=== PATIENT | female | born 1970 | race Caucasian/White ===

== ENCOUNTER 2016-12-01 15:45 | Observation (INO) ==
[2016-12-01 16:19] LABS: Basophils % 0.6 %; Eosinophils # 0.1 K/mcL (0.0-0.6); Eosinophils % 1.8 %; Hematocrit 47.9 % (35.3-44.9); Hemoglobin 16.3 g/dL (11.5-15.4); Immature Granulocytes % 0.1 % (0-4); Lymphocytes % 43.7 %; Mean Corpuscular Hemoglobin 30.3 pg (28.0-33.3); Mean Platelet Volume 10.4 fL (9.4-12.4); Monocytes # 0.6 K/mcL (0.0-1.3); Monocytes % 9.2 %; Neutrophils # 3.1 K/mcL (1.6-8.9); Platelet Count 326 K/mcL (140-400); Red Blood Count 5.38 M/mcL (3.82-4.97); Red Cell Distribution Width 12.7 % (11.5-14.5); Segmented Neutrophils % 44.6 %
[2016-12-01 16:28] LABS: Activated Partial Thrombo Time 28.3 Seconds (26.0-36.0)
[2016-12-01 16:33] LABS: Alanine Aminotransferase 30 Units/L (0-55); Albumin/Globulin Ratio 0.8 (1.1-2.2); Alkaline Phosphatase 97 Units/L (38-126); Aspartate Amino Transferase 20 Units/L (5-34); BUN/Creatinine Ratio 9 (6-26); Bilirubin,Total 0.3 mg/dL (0.2-1.2); Blood Urea Nitrogen 9 mg/dL (7-20); Calcium 10.1 mg/dL (8.6-10.8); Carbon Dioxide 27 mEq/L (19-29); Chloride 98 mEq/L (98-109); Globulin 4.9 g/dL (2.4-3.5); Glucose 121 mg/dL (70-99); Osmolality,Calculated 288 (280-300); Potassium 3.3 mEq/L (3.5-4.5); Sodium 139 mEq/L (136-145); Total Protein 8.9 g/dL (6.0-8.3); eGFR For African Americans > 60 (> 60); eGFR For Non-African Americans > 60 (> 60)
--- NOTE | 2016-12-01 16:37 | Emergency Department Note ---
Disposition Clinical Impression: Chest pain Disposition: Admitted As Inpatient Referrals: NO,PCP [Primary Care Provider] - Forms: ED Satisfaction Letter SOB HPI - General Chief Complaint: ED Shortness of Breath/Dyspnea Stated Complaint: SOB Time Seen by Provider: 12/01/16 16:04 Source: patient Limitations: no limitations Nursing Notes Reviewed: Yes Vital Signs Reviewed: Yes - History of Present Illness Patient presents when her shortness of breath that started yesterday. Patient states symptoms came on while at rest. Patient denies prior history of similar symptoms denies fevers or chills. Patient denies any numbness and tingling associated with this. Patient states she feels that she has trouble with ambulation associated. Patient also states she is a chest pain and a feeling that her heart is racing. - Related Data Home Medications Medication Instructions Recorded Confirmed ClonazePAM [Klonopin] 0.5 mg PO BID 07/27/16 12/01/16 Divalproex Sodium [Depakote] 250 mg PO HS 07/27/16 12/01/16 Hydrochlorothiazide 25 mg PO DAILY 07/27/16 12/01/16 [Hydrochlorothiazide] Loratadine [Claritin] 10 mg PO DAILY 07/27/16 12/01/16 Omeprazole [PriLOSEC] 20 mg PO DAILY 07/27/16 12/01/16 Quetiapine Fumarate [Seroquel] 100 mg PO HS 07/27/16 12/01/16 Ranitidine HCl [Zantac] 300 mg PO DAILY 08/15/16 12/01/16 Duloxetine [Cymbalta] 90 mg PO DAILY 10/02/16 12/01/16 Calcium Carbonate/Vitamin D3 1 tab PO DAILY 12/01/16 12/01/16 [Calcium 1,000 + D3 Caplet] Allergies Allergy/AdvReac Type Severity Reaction Status Date / Time metoclopramide [From Reglan] AdvReac Anxiety Verified 10/02/16 09:35 prochlorperazine AdvReac Anxiety Verified 10/02/16 09:35 [From Compazine] All systems ED: reviewed and negative except as stated. Past Medical History - Past Medical History Source: patient Medical history: Reports: asthma, coronary artery disease, GERD, hypertension, migraine, other Psychiatric history: Reports: anxiety PREDICTIVE MAINTENANCE SPECIALIST history: Reports: no PREDICTIVE MAINTENANCE SPECIALIST history - Social History Smoking Status: Former smoker Smokeless Tobacco Status: No Alcohol use: Reports: occasionally Drug use: Reports: none Physical Exam - General Limitations: no limitations General appearance: alert, in no apparent distress - Head Head exam: atraumatic, normocephalic, normal inspection - Eye Eye exam: Present: normal appearance, PERRL, EOMI - ENT ENT exam: normal exam, normal oropharynx, mucous membranes moist - Neck Neck exam: Present: normal inspection, full ROM, trachea midline - Chest Chest inspection: Present: normal inspection, symmetric chest wall rise - Respiratory Respiratory exam: Present: normal lung sounds bilaterally - Cardiovascular Cardiovascular exam: Present: normal rhythm, tachycardia, normal heart sounds - Abdominal Exam Abdominal exam: Present: soft, Non-Tender. Absent: tenderness, distention, guarding, rebound, rigidity - Extremities Exam Extremities exam: Present: normal inspection, full ROM. Absent: tenderness, pedal edema - Back Exam Back exam: Present: normal inspection, full ROM. Absent: tenderness - Neurological Exam Neurological exam: Present: alert, oriented X3 - Psychiatric Psychiatric exam: Present: normal affect, normal mood - Skin Skin exam: Present: warm, dry, intact, normal color Course Vital Signs Temperature 97.2 F L 12/01/16 15:51 Pulse Rate 116 12/01/16 15:51 Respiratory Rate 22 12/01/16 15:51 Blood Pressure 132/95 12/01/16 15:51 O2 Sat by Pulse Oximetry 96 12/01/16 15:51 Temperature 97.2 F L 12/01/16 15:51 Pulse Rate 93 12/01/16 19:01 Respiratory Rate 18 12/01/16 19:01 Blood Pressure 113/75 12/01/16 19:01 O2 Sat by Pulse Oximetry 96 12/01/16 19:01 Oxygen Delivery Oxygen Delivery Room Air Shortness of Breath/Dyspnea - Differential Diagnosis Likely: acute exacerbation of chronic obstructive airways disease, congestive heart failure, pneumonia, pulmonary embolism - Lab Data Result diagrams: 12/01/16 16:08 12/01/16 16:08 Lab Results 12/01/16 12/01/16 12/01/16 Range/Units 16:08 16:08 16:08 WBC 6.8 (4.3-11.1) K/mcL RBC 5.38 H (3.82-4.97) M/mcL Hgb 16.3 H (11.5-15.4) g/dL Hct 47.9 H (35.3-44.9) % MCV 89.0 (83.0-100.0) fL MCH 30.3 (28.0-33.3) pg MCHC 34.0 (31.6-35.5) g/dL RDW 12.7 (11.5-14.5) % Plt Count 326 (140-400) K/mcL MPV 10.4 (9.4-12.4) fL Immature Gran % 0.1 (0-4) % Seg Neutrophils % 44.6 % Lymphocytes % 43.7 % Monocytes % 9.2 % Eosinophils % 1.8 % Basophils % 0.6 % Neutrophils # 3.1 (1.6-8.9) K/mcL Lymphocytes # 3.0 (0.6-4.6) K/mcL Monocytes # 0.6 (0.0-1.3) K/mcL Eosinophils # 0.1 (0.0-0.6) K/mcL Basophils # 0.0 (0.0-0.2) K/mcL APTT 28.3 (26.0-36.0) Seconds D-Dimer 386 (0-500) ng/mLFEU Sodium 139 (136-145) mEq/L Potassium 3.3 L (3.5-4.5) mEq/L Chloride 98 (98-109) mEq/L Carbon Dioxide 27 (19-29) mEq/L BUN 9 (7-20) mg/dL Creatinine 0.97 (0.57-1.11) mg/dL Est GFR ( Amer) > 60 (> 60) Est GFR (Non-Af Amer) > 60 (> 60) BUN/Creatinine Ratio 9 (6-26) Glucose 121 H (70-99) mg/dL Calculated Osmolality 288 (280-300) Calcium 10.1 (8.6-10.8) mg/dL Total Bilirubin 0.3 (0.2-1.2) mg/dL AST 20 (5-34) Units/L ALT 30 (0-55) Units/L Alkaline Phosphatase 97 (38-126) Units/L Troponin I (0-0.03) ng/mL B-Natriuretic Peptide (0-100) pg/mL Serum Total Protein 8.9 H (6.0-8.3) g/dL Albumin 4.0 (3.5-5.0) g/dL Globulin 4.9 H (2.4-3.5) g/dL Albumin/Globulin Ratio 0.8 L (1.1-2.2) 12/01/16 12/01/16 Range/Units 16:08 16:08 WBC (4.3-11.1) K/mcL RBC (3.82-4.97) M/mcL Hgb (11.5-15.4) g/dL Hct (35.3-44.9) % MCV (83.0-100.0) fL MCH (28.0-33.3) pg MCHC (31.6-35.5) g/dL RDW (11.5-14.5) % Plt Count (140-400) K/mcL MPV (9.4-12.4) fL Immature Gran % (0-4) % Seg Neutrophils % % Lymphocytes % % Monocytes % % Eosinophils % % Basophils % % Neutrophils # (1.6-8.9) K/mcL Lymphocytes # (0.6-4.6) K/mcL Monocytes # (0.0-1.3) K/mcL Eosinophils # (0.0-0.6) K/mcL Basophils # (0.0-0.2) K/mcL APTT (26.0-36.0) Seconds D-Dimer (0-500) ng/mLFEU Sodium (136-145) mEq/L Potassium (3.5-4.5) mEq/L Chloride (98-109) mEq/L Carbon Dioxide (19-29) mEq/L BUN (7-20) mg/dL Creatinine (0.57-1.11) mg/dL Est GFR ( Amer) (> 60) Est GFR (Non-Af Amer) (> 60) BUN/Creatinine Ratio (6-26) Glucose (70-99) mg/dL Calculated Osmolality (280-300) Calcium (8.6-10.8) mg/dL Total Bilirubin (0.2-1.2) mg/dL AST (5-34) Units/L ALT (0-55) Units/L Alkaline Phosphatase (38-126) Units/L Troponin I 0.00 (0-0.03) ng/mL B-Natriuretic Peptide < 10 (0-100) pg/mL Serum Total Protein (6.0-8.3) g/dL Albumin (3.5-5.0) g/dL Globulin (2.4-3.5) g/dL Albumin/Globulin Ratio (1.1-2.2) - Radiology Data Radiology results reviewed: Yes I reviewed the patient's radiology results. Chest X-Ray 12/01/16 16:08 IMPRESSION: No evidence of acute cardiopulmonary disease. D/ / Yared Rendon MD / Yared Rendon MD Interpreting Provider: Yared Rendon MD - EKG Data EKG attestation: Yes I reviewed and interpreted this EKG. EKG shows normal: Reports: sinus rhythm Rate: Reports: tachycardia Rhythm: Reports: NSR
[2016-12-01] MEDS ORDERED: Nitroglycerin 0.4 MG TAB.SUBL SL PRN (17:02)
[2016-12-01] MEDS ORDERED: *HR* Morphine 2 MG/ML SYRINGE IV ONE (17:34)
[2016-12-01] MEDS ORDERED: Ondansetron 4 MG/2 ML VIAL IVP ONE (17:43)
[2016-12-01] MEDS ORDERED: 0.9 % Sodium Chloride 1,000 ML IV ONE (18:17)
[2016-12-01] MEDS ORDERED: Aspirin 81 MG TAB.CHEW PO STA (19:24)
[2016-12-01] MEDS ORDERED: Acetaminophen 325 MG TABLET PO PRN (21:30)
[2016-12-01] MEDS ORDERED: Ondansetron 4 MG/2 ML VIAL IVP PRN (21:30)
[2016-12-01] MEDS ORDERED: Heparin 25,000 UNIT/500 ML D5W 25,000 UNIT/500 ML MLS IVC SCH (21:30)
[2016-12-01] MEDS ORDERED: Naloxone 0.4 MG/ML INJ IVP PRN (21:30)
[2016-12-01] MEDS ORDERED: 0.9 % Sodium Chloride w KCl 20 MEQ/1,000 ML MLS IVC SCH (21:30)
[2016-12-01] MEDS ORDERED: *HR* Heparin 5,000 UNIT/ML VIAL IVP PRN ×2 (21:30)
[2016-12-01] MEDS ORDERED: *HR* Heparin 5,000 UNIT/ML VIAL IVP ONE (21:30)
--- NOTE | 2016-12-01 21:42 | Internal Med History&Physical ---
Date of Encounter: 12/01/16 Time of Encounter: 20:50 Assessment and Plan (1) Chest pain Current visit: Yes Status: Acute 1. History and EKG concerning for coronary ischemia. 2. Will start Heparin gtt per ACS protocol, cycle troponins and EKG, and order ECHO for the morning. 3. At a minimum, she needs cardiac stress test, but I favor [facility]. 4. Consult cardiology given above concerns. I will defer ischemic work-up to cardiology. Qualifiers: Chest pain type: chest pain due to myocardial ischemia Ischemic chest pain type: stable angina pectoris Qualified Code(s): I20.8 - Other forms of angina pectoris (2) GERD (gastroesophageal reflux disease) Current visit: Yes Status: Chronic 1. Continue home PPI and H2 blockers. 2. Exam and history do not suggest GI source of chest pain. Qualifiers: Esophagitis presence: without esophagitis Qualified Code(s): K21.9 - Gastro -esophageal reflux disease without esophagitis (3) DVT prophylaxis Current visit: Yes Status: Acute 1. Heparin gtt as noted above. Internal Medicine - H&P: HPI Chief complaint: chest pain Admitted From: Emergency Dept Plans for Post Hospital Care: Home History of present illness: Ms. Quiles is a 46 year old female who presents the ER with a 24-hour history of substernal chest pain, pressure, associated diaphoresis, shortness of breath , and pain radiation to her left arm. Symptoms started yesterday when she was at rest and sitting on the couch. She felt a little anxious, so she took her nighttime medication last night and went to bed. She then woke up this morning with the same kind of pain and it made her more nervous and anxious. Her mother and father convinced her to come to the ER for evaluation. ER work-up was negative, but she was admitted to hospitalist service for further workup and care. Upon my assessment of the patient, she has minimal residual chest pain now. She states that she felt better with oxygen administration and a one-time dose of morphine. She had minimal relief with nitroglycerin. She states that there is a strong family history of premature coronary artery disease and that her father had heart disease in his 40s. She does not smoke, and she is not diabetic. However, the family history is rather concerning. Unfortunately, she is rather sedentary lately due to recent ankle surgery. She denies any history of blood clots personally or in her family. She had a prior stress test about 6 or 7 years ago which was reportedly negative. I reviewed her EKG and note that she has some subtle ischemic changes in the precordial leads, primarily V3 to V6. Past Med Surg Social Fam HX - Past Medical History Attestation: Yes The following information was validated with the patient. Source: patient, old records reviewed Medical history: asthma, GERD, hypertension, migraine Psychiatric history: anxiety - Past Surgical History Surgical History: CLARE/BSO - Social History Smoking Status: Former smoker Smokeless Tobacco Status: No Alcohol use: occasionally Drug use: none Current living situation: Home, With Family Activity Level: Independent ambulation Recent Out of Country Travel Within the Last 8 Weeks: No - Family History Mother Living Status: Still Living (alive and well) Father Living Status: Still Living Hx Family Cardiac Disorders: Yes (premature CAD) Internal Medicine - H&P: Meds ClonazePAM [Klonopin] 0.5 mg PO BID 07/27/16 [History] Divalproex Sodium [Depakote] 250 mg PO HS 07/27/16 [History] Hydrochlorothiazide [Hydrochlorothiazide] 25 mg PO DAILY 07/27/16 [History] Loratadine [Claritin] 10 mg PO DAILY 07/27/16 [History] Omeprazole [PriLOSEC] 20 mg PO DAILY 07/27/16 [History] Quetiapine Fumarate [Seroquel] 100 mg PO HS 07/27/16 [History] Ranitidine HCl [Zantac] 300 mg PO DAILY 08/15/16 [History] Duloxetine [Cymbalta] 90 mg PO DAILY 10/02/16 [History] Calcium Carbonate/Vitamin D3 [Calcium 1,000 + D3 Caplet] 1 tab PO DAILY [History] Allergies metoclopramide [From Reglan] Adverse Reaction (Verified 10/02/16 09:35) Anxiety prochlorperazine [From Compazine] Adverse Reaction (Verified 10/02/16 09:35) Anxiety - Constitutional Constitutional: no chills, no fever(s) - EENT Eyes: no blurry vision, no change in vision Ears: no ear pain, no tinnitus Nose, mouth and throat: no nasal congestion, no sinus pain, no sinus pressure, no sore throat - Cardiovascular Cardiovascular ROS IM: chest pain, diaphoresis, dyspnea, palpitations, no lightheadedness, no syncope - Respiratory Respiratory: dyspnea, no cough, no hemoptysis, no chest congestion, no excessive phlegm production - Gastrointestinal Gastrointestinal: no abdominal pain, no diarrhea, no hematemesis, no hematochezia, no melena, no vomiting - Genitourinary Genitourinary: no dysuria, no hematuria - Musculoskeletal Musculoskeletal ROS IM: no back pain, no muscle cramps, no muscle weakness - Integumentary Integumentary IM: no rash, no jaundice - Neurological Neurological ROS: no focal weakness, no frequent falls, no headache(s) - Psychiatric Psychiatric: no anxiety, no depression - Endocrine Endocrine IM: no cold intolerance, no heat intolerance, no polydipsia, no polyuria - Hematologic/Lymphatic Hematologic/Lymphatic: no easy bruising, no lymphadenopathy - Allergic/Immunologic Allergic/Immunologic: no wheezing, no GI upset with certain foods - Constitutional Vitals: Temp Pulse Resp BP Pulse Ox 97.8 F 89 18 121/80 96 12/01/16 20:53 12/01/16 20:53 12/01/16 20:53 12/01/16 20:53 12/01/16 20:53 General appearance: Present: cooperative, A&O X 3, pleasant, no acute distress, answers questions appropriately - Head Head exam: Present: atraumatic, normal inspection - Expanded Head Exam Head exam expanded: Absent: abrasion, contusion, general tenderness - Eye Eye exam: Present: EOMI, normal appearance, PERRL. Absent: scleral icterus Pupils: Present: normal accommodation - ENT ENT exam: Present: mucous membranes moist, normal exam, normal oropharynx - Neck Neck exam general surgery: Present: full ROM, normal inspection, supple. Absent : nuchal rigidity - Expanded Neck Exam Neck exam: Absent: carotid bruit - Respiratory Respiratory exam: Present: CTAB. Absent: chest wall tenderness, rales, respiratory distress, rhonchi, wheezes - Cardiovascular Cardiovascular exam: Present: RRR, +S1, +S2. Absent: diastolic murmur, systolic murmur - GI/Abdominal GI/Abdominal exam: Present: normal bowel sounds, soft. Absent: hepatomegaly, mass, splenomegaly, tenderness - Extremities Exam Extremities exam: Present: full ROM, joint swelling (right ankle from recent surgery), warm. Absent: calf tenderness, pedal edema - Back Exam Back exam: Present: normal inspection. Absent: CVA tenderness (L), CVA tenderness (R) - Neurological Exam Neurological exam: Present: alert, CN II-XII intact, oriented X3, no focal deficits - Psychiatric Psychiatric exam: Present: normal affect, normal mood - Skin Skin exam: Present: dry, warm. Absent: rash Internal Med - H&P Results - Labs CBC & Chem 7: 12/01/16 16:08 12/01/16 16:08 - EKG Data -: EKG Interpreted by Myself EKG shows normal: sinus rhythm - EKG Data Prior EKG available for review: yes When compared to previous EKG: there are significant changes EKG comments: 12/01/16 21:47 Sinus tachycardia with subtle ST-T depression in leads V3-V6. - Diagnostic Studies Chest x-ray Status: image reviewed by me (negative) - VTE Reasons for not Prescribing Prophylaxis: Not indicated-Anticoagulated or INR therapeutic
[2016-12-01] MEDS ORDERED: Divalproex (24 HR) 250 MG TABLET PO SCH (21:45)
[2016-12-01] MEDS: *HR* Morphine 2 MG/ML SYRINGE IVP PRN (22:55)
[2016-12-01 22:58] LABS: Hematocrit 42.6 % (35.3-44.9); Mean Corpuscular HGB Conc 33.1 g/dL (31.6-35.5); Mean Corpuscular Volume 90.6 fL (83.0-100.0); Mean Platelet Volume 10.3 fL (9.4-12.4); Platelet Count 291 K/mcL (140-400); Red Cell Distribution Width 12.8 % (11.5-14.5)
[2016-12-01 23:01] LABS: Hemoglobin 14.1 g/dL (11.5-15.4)
[2016-12-01 23:04] LABS: INR 1.2; Prothrombin Time 13.1 Seconds (9.4-12.1)
[2016-12-01 23:06] LABS: Activated Partial Thrombo Time 28.2 Seconds (26.0-36.0)
[2016-12-01] MEDS: clonazePAM 0.5 MG TABLET PO PRN (23:35)
[2016-12-02 06:26] LABS: Basophils % 0.5 %; Eosinophils # 0.1 K/mcL (0.0-0.6); Eosinophils % 1.5 %; Hematocrit 39.5 % (35.3-44.9); Lymphocytes # 3.9 K/mcL (0.6-4.6); Lymphocytes % 59.9 %; Mean Corpuscular HGB Conc 32.9 g/dL (31.6-35.5); Mean Corpuscular Hemoglobin 30.1 pg (28.0-33.3); Mean Corpuscular Volume 91.4 fL (83.0-100.0); Monocytes # 0.6 K/mcL (0.0-1.3); Monocytes % 9.2 %; Neutrophils # 1.9 K/mcL (1.6-8.9); Platelet Count 263 K/mcL (140-400); Red Blood Count 4.32 M/mcL (3.82-4.97); Red Cell Distribution Width 12.7 % (11.5-14.5); Segmented Neutrophils % 28.9 %
[2016-12-02 06:42] LABS: Alanine Aminotransferase 21 Units/L (0-55); Albumin/Globulin Ratio 0.9 (1.1-2.2); Alkaline Phosphatase 69 Units/L (38-126); Aspartate Amino Transferase 15 Units/L (5-34); BUN/Creatinine Ratio 15 (6-26); Bilirubin,Total 0.3 mg/dL (0.2-1.2); Blood Urea Nitrogen 13 mg/dL (7-20); Calcium 8.8 mg/dL (8.6-10.8); Carbon Dioxide 26 mEq/L (19-29); Chloride 103 mEq/L (98-109); Chol/HDL Ratio 6.2 (0-4.9); Cholesterol 235 mg/dL (< 200); Globulin 3.3 g/dL (2.4-3.5); Glucose 108 mg/dL (70-99); HDL Cholesterol 38 mg/dL (40-59); LDL Cholesterol,Calculated 156 mg/dL (0-99); Magnesium 1.7 mg/dL (1.6-2.6); Osmolality,Calculated 289 (280-300); Potassium 3.7 mEq/L (3.5-4.5); Sodium 139 mEq/L (136-145); Triglycerides 207 mg/dL (< 150); eGFR For African Americans > 60 (> 60); eGFR For Non-African Americans > 60 (> 60)
[2016-12-02 06:44] LABS: Total Protein 6.3 g/dL (6.0-8.3)
[2016-12-02 07:13] VITALS: BP 101/70
[2016-12-02] MEDS ORDERED: Aspirin 81 MG TAB.CHEW PO SCH (09:00)
[2016-12-02] MEDS ORDERED: Famotidine 20 MG TABLET PO SCH (09:00)
[2016-12-02] MEDS ORDERED: Loratadine 10 MG TABLET PO SCH (09:00)
[2016-12-02] MEDS ORDERED: Regadenoson 0.4 MG/5 ML SYRINGE IVP ONE (09:18)
--- NOTE | 2016-12-02 09:54 | Cardiology Consult Note ---
Date of Encounter: 12/02/16 Time of Encounter: 09:00 Assessment and Plan Discussion w patient/family: The assessment and plan as outlined above was discussed with the patient and/or family members who expressed understanding and agreement. All questions were answered. Thank you for involving us in the care of your patient. Please call with any questions. Chest pain; has some risk factors, exam is ok, ekg no changes , enzymes neg Plan will arrange for gxt today d/c Heparin for now based on results of GXT will consider further recs Thanks History of Present Illness Consult reason: Chest pain Chief complaint: Chest pain is vague, ? pressure like, non radiating, not worse with exertio History of present illness: Ms. Quiles is a 46 year old female with no past cardiac history who comes in now with CP central / pressure like, not worse with exertion. ? Relieved by rest , at present she is pain free. No fever , no chills. Past Med Surg Social Fam HX - Past Medical History Medical history: asthma, GERD, hypertension, migraine Psychiatric history: anxiety - Past Surgical History Surgical History: CLARE/BSO - Social History Smoking Status: Former smoker Smokeless Tobacco Status: No Alcohol use: occasionally Drug use: none - Family History Mother Living Status: Still Living Father Living Status: Still Living Hx Family Cardiac Disorders: Yes (premature CAD, pacemaker/defib, NC, CHF) Medications and Allergies ClonazePAM [Klonopin] 0.5 mg PO BID 07/27/16 [History] Divalproex Sodium [Depakote] 250 mg PO HS 07/27/16 [History] Hydrochlorothiazide [Hydrochlorothiazide] 25 mg PO DAILY 07/27/16 [History] Loratadine [Claritin] 10 mg PO DAILY 07/27/16 [History] Omeprazole [PriLOSEC] 20 mg PO DAILY 07/27/16 [History] Quetiapine Fumarate [Seroquel] 100 mg PO HS 07/27/16 [History] Ranitidine HCl [Zantac] 300 mg PO DAILY 08/15/16 [History] Duloxetine [Cymbalta] 90 mg PO DAILY 10/02/16 [History] Calcium Carbonate/Vitamin D3 [Calcium 1,000 + D3 Caplet] 1 tab PO DAILY [History] Allergies metoclopramide [From Reglan] Adverse Reaction (Verified 10/02/16 09:35) Anxiety prochlorperazine [From Compazine] Adverse Reaction (Verified 10/02/16 09:35) Anxiety All Systems Review: A 10-system review of systems was performed and is negative for pertinent findings except as documented above in the HPI. Physical Examination Vital Signs, Last 4 Hours Temp Pulse Resp BP Pulse Ox 12/02/16 07:09 97.5 F L 79 14 101/70 99 General: Conversant HEENT: Atraumatic Neck: No JVD Cardiac: Reg Rate and Rhythm Lungs: Normal Breath Sounds Neuro: Alert and responsive Abdomen: Soft Skin: No rashes noted on visualized skin Musculoskeletal: No Chest Wall Tenderness Extremities: No Clubbing Results 12/02/16 06:19 12/02/16 06:19 Lab Results 12/01/16 12/01/16 12/01/16 22:51 22:51 22:51 WBC 6.7 Hgb 14.1 D Hct 42.6 Plt Count 291 INR 1.2 APTT 28.2 Sodium Potassium Chloride Carbon Dioxide BUN Creatinine Glucose Calcium Magnesium Total Bilirubin AST ALT Alkaline Phosphatase Troponin I 0.00 12/02/16 12/02/16 12/02/16 06:19 06:19 06:19 WBC 6.5 Hgb 13.0 Hct 39.5 Plt Count 263 INR APTT Sodium 139 Potassium 3.7 Chloride 103 Carbon Dioxide 26 BUN 13 Creatinine 0.84 Glucose 108 H Calcium 8.8 Magnesium 1.7 Total Bilirubin 0.3 AST 15 ALT 21 Alkaline Phosphatase 69 Troponin I 0.00 12/02/16 06:19 WBC Hgb Hct Plt Count INR APTT 55.7 H D Sodium Potassium Chloride Carbon Dioxide BUN Creatinine Glucose Calcium Magnesium Total Bilirubin AST ALT Alkaline Phosphatase Troponin I - EKG Interpretation EKG results cardiology: no diagnostic ischemia (non specific st t changes) Consult Discharge Plan - Plan Referrals: NO,PCP [Primary Care Provider] -
--- NOTE | 2016-12-02 11:09 | ECHO - Doppler Report ---
Echocardiogram Name: Amada Quiles Date of Study: 12/02/2016 Date: 1970 Ht: 64.0 in Medical Record#: [id number] Age: 46 Wt: 180.0 lb Gender: Female BSA: 1.87 Order #: [id number] Location: [facility] Room #: [id number] Reading Physician: Sawyer Hook DO, FELIX, SANTOS AZAR Consulting Utility Forester: Rhianna Dye RDCS Ordering Physician: Johnie Rios MD Primary Physician: None Indications: Chest pain, Ischemic EKG Changes Impressions: LVEF 60%. Normal LV chamber size, wall thickness and function. Normal left ventricular diastolic function. Normal right ventricular structure and function. No evidence of pulmonary hypertension. No significant valvular dysfunction. Left Ventricular Wall Motion: Rest Echo Findings All wall segments showed normal motion. Findings: Study Quality * Technically adequate exam. ECG Findings * Normal sinus rhythm. Left Ventricle * LVEF 60%. * Normal LV chamber size, wall thickness and function. * Normal left ventricular diastolic function. Right Ventricle * Normal right ventricular structure and function. Left Atrium * Mildly dilated left atrium. Right Atrium * Normal right atrial size. Interatrial Septum * Interatrial septum not well evaluated. Aortic Valve * Trileaflet aortic valve with normal function. * No aortic regurgitation. * No aortic stenosis. Mitral Valve * Normal mitral valve structure and function. * No mitral regurgitation. * No mitral stenosis. Tricuspid Valve * Normal tricuspid valve structure and function. * Trace tricuspid regurgitation. * No evidence of pulmonary hypertension. Pulmonic Valve * Pulmonic valve not well visualized. Aorta * Normally sized aortic root. Pericardium * The pericardium appears normal. IVC * Normal IVC dimensions and inspiratory collapse. Pulmonary Artery * Pulmonary artery not well visualized. History Hypertension Family History of CAD Measurements: BP: 106/ 69 2D Normal Values RVIDd: 2.74 cm <2.7 cm IVSd: .70 cm 0.6 - 1.0 cm LVIDd: 4.90 cm 3.7 - 5.6 cm LVPWd: .84 cm 0.6 - 1.1 cm LVIDs: 2.84 cm 1.5 - 3.6 cm AO: 2.30 cm < 4.0 cm LA: 2.80 cm 2.0 - 4.0cm %FS: 42.00 cm >25 % LA volume: 36 Mitral Valve Peak E:1.02 m/sec Peak A:.73 m/sec E/A Ratio:1.4 Peak E' Lat Flash:7.83 cm/s Peak E' Med Flash:10.7 cm/s E/E' Lat Ratio:13 E/E' Med Ratio:9.5 Tricuspid Valve TV Regurg Peak Grad: 14.00mmHg TV Regurg Peak Flash: 1.87m/sec Updated by Sawyer Hook DO, FELIX, SANTOS AZAR on 12/02/2016 11:04:50 AM electronically signed on 12/02/2016 11:05:20 AM with status of Final Wall Motion Canas: 1=Normal, 2=Hypokinesis, 3=Akinesis, 4=Dyskinesis, 5=Aneurysmal, 6=Hyperkinetic, X=Not Visualized (Blank)=Missing
--- NOTE | 2016-12-02 12:37 | Nuclear Medicine Stress Report ---
Regadenoson Nuclear Stress Name: Amada Quiles Date of Study: 12/02/2016 Date: 1970 Ht: 64.0 in Medical Record#: [id number] Age: 46 Wt: 180.0 lb Gender: Female Order #: [id number] Location: [facility] Room: [facility] Supervising Provider: Ferny Abraham CNP Reading Physician: Sawyer Hook DO, FACC, FASE, SANTOS Ordering Physician: Mary Fry MD Primary Care Physician: None Stress Technologist: Tigist Carey, HEAD ATHLETIC TRAINER, CCT, CPFT Rotoprinter: Nickolas Canas Indications: Chest Pain, Shortness of breath Impression: Pharmacologic stress ECG is negative for ischemia at level of heart rate achieved. Gated EF > 70%. Perfusion imaging was negative for ischemia or infarct. History: Hypertension Hypercholesteremia Stress Test Summary: Stress Test Type: Pharmacologic Regadenoson 0.4mg/5ml given IV Baseline Information: Initial Heart Rate: 80 Blood Pressure: 104/68 Stress Information: Test Terminated Due to (primary): As per protocol Maximum Blood Pressure: 112/62 Maximum Heart Rate: 105 Percent Maximum Heart Rate Achieved: 60 Double Product: [id number] METS Reached: 1 Symptoms: Shortness of breath Nuclear Summary: SPECT myocardial perfusion imaging using Tc99m Sestamibi given intravenously was performed at rest and following cardiac stress testing. The resting images were obtained following initial dose of 11.2 mCi. Following stress an additional dose of 35.3 mCi was given at peak exercise or 30 seconds post regadenoson infusion. Medication Given: Time Medication Dose Units Route Findings: Stress Note * Resting ECG demonstrated normal sinus rhythm. * No baseline arrhythmias were noted. * Pharmacologic stress ECG is negative for ischemia at level of heart rate achieved. * No arrhythmias were noted during stress. * Patient had no chest pain during stress. * Normal hemodynamic responses to pharmacologic stress. Study Quality * Study quality is average. Gated EF > 70% * Gated EF > 70%. Left Ventricle * The left ventricle is not dilated. LVEDV = 74 mL. NORMALS * All other wall motion normal. * Normal Segmental Perfusion in rest. * Normal segmental perfusion in stress. TID * No evidence of transient ischemic dilatation. TID ratio = 1.11. Lung Uptake * There is no evidence of increase lung uptake. Updated by Sawyer Hook DO, FELIX, DOE, SANTOS on 12/02/2016 12:30:59 PM electronically signed on 12/02/2016 12:32:02 PM with status of Final
--- NOTE | 2016-12-02 12:51 | Event Note ---
Date of Encounter: 12/02/16 Time of Encounter: 12:50 - Cardiology Event Note Stress test resulted. Gated EF >70%. Perfusion imaging negative for ischemia or infarct. Cardiology is signing off. Reconsult PRN .
--- NOTE | 2016-12-02 13:10 | Discharge Summary ---
Date of Encounter: 12/02/16 Time of Encounter: 13:06 - Discharge Diagnosis (1) Chest pain Priority: Primary Status: Acute Qualifiers: Chest pain type: precordial pain Qualified Code(s): R07.2 - Precordial pain (2) Hyperlipidemia Priority: Secondary Status: Acute Qualifiers: Hyperlipidemia type: mixed hyperlipidemia Qualified Code(s): E78.2 - Mixed hyperlipidemia (3) GERD (gastroesophageal reflux disease) Priority: Secondary Status: Chronic Qualifiers: Esophagitis presence: without esophagitis Qualified Code(s): K21.9 - Gastro -esophageal reflux disease without esophagitis - Discharge Medications Prescriptions: Aspirin 81 mg PO DAILY #30 tab.chew Pravastatin Sodium [Pravachol] 20 mg PO DAILY #30 tablet Home Medications: ClonazePAM [Klonopin] 0.5 mg PO BID 07/27/16 [History] Divalproex Sodium [Depakote] 250 mg PO HS 07/27/16 [History] Hydrochlorothiazide 25 mg PO DAILY 07/27/16 [History] Loratadine [Claritin] 10 mg PO DAILY 07/27/16 [History] Omeprazole [PriLOSEC] 20 mg PO DAILY 07/27/16 [History] Quetiapine Fumarate [Seroquel] 100 mg PO HS 07/27/16 [History] Ranitidine HCl [Zantac] 300 mg PO DAILY 08/15/16 [History] Duloxetine [Cymbalta] 90 mg PO DAILY 10/02/16 [History] Calcium Carbonate/Vitamin D3 [Calcium 1,000 + D3 Caplet] 1 tab PO DAILY [History] Aspirin 81 mg PO DAILY #30 tab.chew 12/02/16 [Rx] Pravastatin Sodium [Pravachol] 20 mg PO DAILY #30 tablet 12/02/16 [Rx] Allergies/Adverse Reactions: Allergies metoclopramide [From Reglan] Adverse Reaction (Verified 10/02/16 09:35) Anxiety prochlorperazine [From Compazine] Adverse Reaction (Verified 10/02/16 09:35) Anxiety Procedures/tests Complete & Pending: Procedures Performed prior 72 hours Category Date Time Status NM lucie perf SPECT multi [NM] Routine Exams 12/02/16 09:13 Taken ECG 12 lead ECG [ECG] AM 0600 Y 12/02/16 06:00 Ordered EV echocardiogram Routine Y 12/02/16 09:00 Completed SP pharm nuclear stress Routine Y 12/02/16 09:13 Completed Date of admission: 12/01/16 19:32 Primary care physician: PCP VALE Consults: 12/01/16 21:34 Consult to Physician [CONS] Routine Consulting Provider: Ryan Miller Reason for Consult: chest pain/ACS; suspect needs [facility] Call Completed: No 12/02/16 08:21 Consult to Cardiology [CONS] Routine Comment: Consulting Provider: Cardiology Katja Reason for Consult: chest pain Call Completed: No Discharging clinician: Mary Fry Anticipated date of discharge: 12/02/16 - Patient Status Disposition: Home, Self-Care Condition: Good Functional capacity at discharge: independent ambulation Overall status at discharge: patient is progressing back to baseline - Discharge Instructions Instructions: Chest Pain (DC) Follow Up With: NO,PCP [Primary Care Provider] - (in 1-2 weeks) - Diet and Activity Activity: increase activity as tolerated Diet: low fat, low cholesterol Hospital course: Ms. Quiles is a 46 year old female status essential hypertension, gastroesophageal reflux disease who was observed in the hospital after she presented with chest pressure concerning for ACS. She was evaluated with EKG which showed subtle ST-T wave depression in leads V3 to V6. Cardiology was consulted. They recommended a stress test for the patient. She underwent a nuclear medicine stress test which was negative for any ischemia. As such the patient is stable to be discharged home. Chest pain could be due to gastroesophageal reflux disease. Patient is already on omeprazole and ranitidine. If this pain persists, she will need evaluation with EGD as outpatient. Patient also has hyperlipidemia and has been started on pravastatin for this. - Time Spent with Patient Total time spent providing and/or coordinating discharge services: Less than 30 minutes (25 min) - Constitutional Vitals: Temp Pulse Resp BP Pulse Ox 97.5 F L 79 14 101/70 99 12/02/16 07:09 12/02/16 07:09 12/02/16 07:09 12/02/16 07:09 12/02/16 09:00 General appearance: Present: cooperative, A&O X 3, pleasant, no acute distress, answers questions appropriately - Respiratory Respiratory exam: Present: CTAB. Absent: accessory muscle use, rales, rhonchi, wheezes - Cardiovascular Cardiovascular exam: Present: RRR, +S1, +S2. Absent: diastolic murmur, gallop, rubs, systolic murmur - Extremities Exam Extremities exam: Present: warm, radial pulses palpable and symetrical. Absent : calf tenderness, cyanotic, pedal edema - VTE Reasons for not Prescribing Prophylaxis: Not indicated-Anticoagulated or INR therapeutic - Attending Attestation This document has been at least partially created by [employer] recognition technology by Dr. Fry. Errors in grammar, wording or other phrases may exist. If errors are found after the documentation is signed, they will be addressed individually in the addendum section of this document when appropriate.
[2016-12-02] MEDS: clonazePAM 0.5 MG TABLET PO PRN (13:20)
[2016-12-02] MEDS: *HR* Morphine 2 MG/ML SYRINGE IVP PRN (13:22)
--- NOTE | 2016-12-02 20:29 | Electrocardiograph Report ---
[place] [id number] Test Date: 2016-12-01 Pat Name: Amada Quiles Department: [id number] Room: 3B Gender: F [employer]: : 1970 Requested By: Michele Toussaint Order Number: [id number] Reading MD: Sawyer Hook DO Measurements Intervals [place] Rate: 100 P: -3 AR: 104 QRS: 19 QRSD: 84 T: 22 QT: 351 QTc: 408 Interpretive Statements SINUS TACHYCARDIA Electronically Signed On 12-02-2016 20:28:12 EST by Sawyer Hook DO
== END 2016-12-02 14:21 | disposition home or self-care (01) ==
LOC: 3BNU 15:45 → EMEROO 15:45 → 3BNU 20:45
PROVIDERS: ADMIT Internal Medicine; ATTEND Internal Medicine

== ENCOUNTER 2017-05-20 20:58 | Observation (INO) ==
--- NOTE | 2017-05-20 21:05 | Emergency Department Note ---
Disposition Clinical Impression: ACS (acute coronary syndrome) Disposition: Admitted As Inpatient Condition: Good Referrals: NO,PCP [Primary Care Provider] - Forms: ED Satisfaction Letter Time of Disposition: 22:24 Chest Pain HPI - General Chief Complaint: ED Chest Pain Stated Complaint: chest pain Time Seen by Provider: 05/20/17 21:00 Source: patient, EMS Mode of arrival: EMS Vital Signs Reviewed: Yes Nursing Notes Reviewed: Yes - History of Present Illness HPI Narrative: History of present illness: 46-year-old female by EMS for chest pain. Check an episode this morning at about a 11:45 where she took was some lingual much of crystalloid and the pain went away. She states she has never used nitroglycerin before. Then about 5 tonight same thing happen she took 2 nitroglycerin the pain did not go away so she called EMS. Patient says that she had pain initially in the center of her chest now going into her left arm and neck. Shortness of breath nausea and tightness. Patient said she has had admissions before but was supposed to get a cardiac catheter but never did work said later that they did not need to do it. Patient does have multiple risk factors and her HEART score, is approximately 5. Patient got her aspirin at home and per EMS. Patient will be undergoing ACS workup here with admission anticipated. Disposition pending - Related Data Home Medications Medication Instructions Recorded Confirmed Divalproex Sodium [Depakote] 250 mg PO HS 07/27/16 05/20/17 Loratadine [Claritin] 10 mg PO DAILY 07/27/16 05/20/17 Quetiapine Fumarate [Seroquel] 100 mg PO HS 07/27/16 05/20/17 clonazePAM [Klonopin] 0.5 mg PO BID 07/27/16 05/20/17 hydroCHLOROthiazide 25 mg PO DAILY 07/27/16 05/20/17 [Hydrochlorothiazide] Ranitidine HCl [Zantac] 300 mg PO DAILY 08/15/16 05/20/17 DULoxetine [Cymbalta] 90 mg PO DAILY 10/02/16 05/20/17 Ergocalciferol (VITAMIN D2) 50,000 unit PO QMONTH 05/20/17 05/20/17 [Vitamin D2] Esomeprazole Magnesium [Nexium] 40 mg PO DAILY 07/24/17 07/24/17 Previous Rx's Medication Instructions Recorded Aspirin 81 mg PO DAILY #30 tab.chew 12/02/16 Pravastatin Sodium [Pravachol] 20 mg PO DAILY #30 tablet 12/02/16 Nitroglycerin [Nitrostat] 0.4 mg SL Q5-6MIN PRN #20 tab.subl 03/18/17 Allergies Allergy/AdvReac Type Severity Reaction Status Date / Time metoclopramide [From Reglan] AdvReac Anxiety Verified 05/20/17 21:47 prochlorperazine AdvReac Anxiety Verified 05/20/17 21:47 [From Compazine] All systems ED: reviewed and negative except as stated. 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 - Social History Smoking Status: Former smoker Alcohol use: Reports: occasionally Drug use: Reports: none Physical Exam - General Limitations: no limitations General appearance: alert, in distress - Head Head exam: atraumatic, normocephalic - Eye Eye exam: Present: normal appearance, PERRL, EOMI - ENT ENT exam: normal exam, normal oropharynx - Neck Neck exam: Present: normal inspection, full ROM - Chest Chest inspection: Present: normal inspection, symmetric chest wall rise - Respiratory Respiratory exam: Present: normal lung sounds bilaterally - Cardiovascular Cardiovascular exam: Present: regular rate, normal rhythm - Abdominal Exam Abdominal exam: Present: soft, Non-Tender - Extremities Exam Extremities exam: Present: normal inspection, full ROM - Expanded Lower Extremity Exam Neurovascular/Tendon exam: Present: normal capillary refill - Back Exam Back exam: Present: normal inspection, full ROM - Neurological Exam Neurological exam: Present: alert, oriented X3, CN II-XII intact - Psychiatric Psychiatric exam: Present: normal affect, normal mood - Skin Skin exam: Present: warm, dry, intact Course - Reevaluation(s) Reevaluation #1: ED workup is completed. Chest x-ray and troponin are negative or within normal limits as well as other laboratory values. Patient's pain is resolving. Hospitalist page awaiting admission for acute coronary syndrome. Patient family so informed. Patient stable Reevaluation #2: Discussed the case with the hospitalist Dr. SANCHEZ. Patient accepted for admission in stable condition. Orders placed in computer. Vital Signs Temperature 98.3 F 05/20/17 20:59 Pulse Rate 90 05/20/17 20:59 Respiratory Rate 20 05/20/17 20:59 Blood Pressure 133/80 05/20/17 20:59 O2 Sat by Pulse Oximetry 95 05/20/17 20:59 Temperature 98.3 F 05/20/17 20:59 Pulse Rate 89 05/20/17 21:56 Respiratory Rate 18 05/20/17 21:56 Blood Pressure 128/84 05/20/17 21:56 O2 Sat by Pulse Oximetry 98 05/20/17 21:56 Oxygen Delivery Oxygen Delivery Nasal Cannula Chest Pain - Medical Records Medical records reviewed: Yes I reviewed the patient's medical records. - Lab Data Lab results reviewed: Yes I reviewed the patient's lab results. Result diagrams: 05/20/17 21:34 05/20/17 21:34 Lab Results 05/20/17 05/20/17 05/20/17 Range/Units 21:34 21:34 21:34 WBC 8.3 (4.3-11.1) K/mcL RBC 4.90 (3.82-4.97) M/mcL Hgb 14.9 (11.5-15.4) g/dL Hct 44.9 (35.3-44.9) % MCV 91.6 (83.0-100.0) fL MCH 30.4 (28.0-33.3) pg MCHC 33.2 (31.6-35.5) g/dL RDW 13.0 (11.5-14.5) % Plt Count 290 (140-400) K/mcL MPV 10.6 (9.4-12.4) fL Immature Gran % 0.1 (0-4) % Seg Neutrophils % 42.6 % Lymphocytes % 44.8 % Monocytes % 8.0 % Eosinophils % 3.7 % Basophils % 0.8 % Neutrophils # 3.5 (1.6-8.9) K/mcL Lymphocytes # 3.7 (0.6-4.6) K/mcL Monocytes # 0.7 (0.0-1.3) K/mcL Eosinophils # 0.3 (0.0-0.6) K/mcL Basophils # 0.1 (0.0-0.2) K/mcL PT 11.9 (9.4-12.1) Seconds INR 1.1 Sodium (136-145) mEq/L Potassium (3.5-4.5) mEq/L Chloride (98-109) mEq/L Carbon Dioxide (19-29) mEq/L BUN (7-20) mg/dL Creatinine (0.57-1.11) mg/dL Est GFR ( Amer) (> 60) Est GFR (Non-Af Amer) (> 60) BUN/Creatinine Ratio (6-26) Glucose (70-99) mg/dL Calculated Osmolality (280-300) Calcium (8.6-10.8) mg/dL Troponin I (0-0.03) ng/mL B-Natriuretic Peptide < 10 (0-100) pg/mL 05/20/17 05/20/17 Range/Units 21:34 21:34 WBC (4.3-11.1) K/mcL RBC (3.82-4.97) M/mcL Hgb (11.5-15.4) g/dL Hct (35.3-44.9) % MCV (83.0-100.0) fL MCH (28.0-33.3) pg MCHC (31.6-35.5) g/dL RDW (11.5-14.5) % Plt Count (140-400) K/mcL MPV (9.4-12.4) fL Immature Gran % (0-4) % Seg Neutrophils % % Lymphocytes % % Monocytes % % Eosinophils % % Basophils % % Neutrophils # (1.6-8.9) K/mcL Lymphocytes # (0.6-4.6) K/mcL Monocytes # (0.0-1.3) K/mcL Eosinophils # (0.0-0.6) K/mcL Basophils # (0.0-0.2) K/mcL PT (9.4-12.1) Seconds INR Sodium 142 (136-145) mEq/L Potassium 3.7 (3.5-4.5) mEq/L Chloride 105 (98-109) mEq/L Carbon Dioxide 29 (19-29) mEq/L BUN 10 (7-20) mg/dL Creatinine 0.80 (0.57-1.11) mg/dL Est GFR ( Amer) > 60 (> 60) Est GFR (Non-Af Amer) > 60 (> 60) BUN/Creatinine Ratio 13 (6-26) Glucose 102 H (70-99) mg/dL Calculated Osmolality 293 (280-300) Calcium 9.4 (8.6-10.8) mg/dL Troponin I 0.00 (0-0.03) ng/mL B-Natriuretic Peptide (0-100) pg/mL - Radiology Data Radiology results reviewed: Yes I reviewed the patient's radiology results. - EKG Data EKG attestation: Yes I reviewed and interpreted this EKG. EKG results narrative: Twelve-lead EKG interpreted without cardiology reveals the following: Sinus rhythm at 91 bpm,. Vital slightly shortened of 117 ms, QRS duration 94 ms and QT corrected 4 Maria M [address]-T changes with what appears to be T-wave flattening in the lateral leads of V4 V5 and V6 is new changes when compared to a recent EKG 03/18/2017. Heart Score - Score History: Moderately Suspicious EKG: Non Specific repolarisation Disturbance Age: 45-65 Risk Factors: Equal/Greater than 3 risk factor or history of atherosclerotic disease Troponin: Less than normal limit (Patient will be admitted) HEART Score Total: 5
[2017-05-20] MEDS ORDERED: Nitroglycerin 0.4 MG TAB.SUBL SL PRN (21:18)
[2017-05-20 21:44] LABS: Basophils # 0.1 K/mcL (0.0-0.2); Basophils % 0.8 %; Eosinophils # 0.3 K/mcL (0.0-0.6); Eosinophils % 3.7 %; Hematocrit 44.9 % (35.3-44.9); Hemoglobin 14.9 g/dL (11.5-15.4); Immature Granulocytes % 0.1 % (0-4); Lymphocytes # 3.7 K/mcL (0.6-4.6); Lymphocytes % 44.8 %; Mean Corpuscular HGB Conc 33.2 g/dL (31.6-35.5); Mean Corpuscular Hemoglobin 30.4 pg (28.0-33.3); Mean Corpuscular Volume 91.6 fL (83.0-100.0); Mean Platelet Volume 10.6 fL (9.4-12.4); Monocytes # 0.7 K/mcL (0.0-1.3); Neutrophils # 3.5 K/mcL (1.6-8.9); Platelet Count 290 K/mcL (140-400); Segmented Neutrophils % 42.6 %
[2017-05-20 21:52] LABS: INR 1.1; Prothrombin Time 11.9 Seconds (9.4-12.1)
[2017-05-20 21:56] LABS: BUN/Creatinine Ratio 13 (6-26); Blood Urea Nitrogen 10 mg/dL (7-20); Calcium 9.4 mg/dL (8.6-10.8); Carbon Dioxide 29 mEq/L (19-29); Chloride 105 mEq/L (98-109); Glucose 102 mg/dL (70-99); Osmolality,Calculated 293 (280-300); Potassium 3.7 mEq/L (3.5-4.5); Sodium 142 mEq/L (136-145); eGFR For African Americans > 60 (> 60); eGFR For Non-African Americans > 60 (> 60)
[2017-05-20] MEDS ORDERED: *HR* HYDROmorphone (PF) 1 MG/ML SYRINGE IVP ONE (22:04)
[2017-05-21] MEDS ORDERED: Naloxone 0.4 MG/ML INJ IVP PRN (00:21)
[2017-05-21] MEDS ORDERED: *HR* Morphine 2 MG/ML SYRINGE IVP PRN (00:31)
--- NOTE | 2017-05-21 00:46 | Internal Med History&Physical ---
Date of Encounter: 05/21/17 Time of Encounter: 12:20 Assessment and Plan (1) Chest pain Current visit: Yes Status: Acute Patient with episodes of left-sided chest pain that is progressively getting worse in frequency and severity. History of negative stress test earlier this year but patient does have positive family history, is a chronic smoker and has underlying hyperlipidemia. Place on telemetry. Trend troponins. Will consult cardiology. Patient may need diagnostic left heart catheterization to further workup her chest pain. We will place on Nitropaste for pain. Monitor vital signs closely. Continue aspirin, statin. Qualifiers: Chest pain type: precordial pain Qualified Code(s): R07.2 - Precordial pain (2) GERD (gastroesophageal reflux disease) Current visit: Yes Status: Chronic Continue PPI Qualifiers: Esophagitis presence: without esophagitis Qualified Code(s): K21.9 - Gastro -esophageal reflux disease without esophagitis (3) Hyperlipidemia Current visit: Yes Status: Acute Continue statin. Check lipid profile. Qualifiers: Hyperlipidemia type: mixed hyperlipidemia Qualified Code(s): E78.2 - Mixed hyperlipidemia (4) Essential hypertension Current visit: Yes Status: Chronic Continue home medications. Monitor blood pressure. Internal Medicine - H&P: HPI Chief complaint: Chest pain Admitted From: Emergency Dept Plans for Post Hospital Care: Home History of present illness: Ms. Quiles is a 46 year old female patient with history of hyperlipidemia, gastroesophageal reflux disease, chronic tobacco abuse presented to the ER with complaints of chest pain. Patient had been hospitalized in November of this year with similar complaints and at that time she had a cardiac stress test which was negative. She had another episode of chest pain in February when she was seen in ER and discharged on nitroglycerin. She was advised to follow up with cardiology and has an appointment on May 28. However, she has been having more frequent episodes of chest pain that feels like a pressure on her chest radiating to her back and left arm that has been progressively worsening in frequency and severity. No relation to activity. No nausea or vomiting. No palpitations. She does feel like she is unable to catch her breath when the pain gets worse. She was given nitroglycerin in the ER with some improvement in pain but no relief. Past Med Surg Social Fam HX - Past Medical History Attestation: Yes The following information was validated with the patient. Source: patient Medical history: asthma, GERD, hypertension, migraine Psychiatric history: anxiety, PTSD - Past Surgical History Surgical History: , CLARE/BSO - Social History Smoking Status: Current every day smoker Packs per day: 1 Smokeless Tobacco Status: No Alcohol use: occasionally Drug use: none - Family History Mother Living Status: Still Living Father Name: Ezekiel Feliciano Living Status: Age at : 82 Cause of : CA, FTT Hx Family Cardiac Disorders: Yes (Tachycardia, pacer, defib, ablasion) Hx Family Respiratory Disorders: Yes (COPD) Hx Family Cancer: Yes (bladder ca, metastasis) Hx Family GI Disorders: Yes (GERD) Hx Family Genitourinary Disorders: Yes (Bladder ca, urethral stent) Hx Family Endocrine Disorder: No Hx Family Musculoskeletal Disorders: No Hx Family Neuromuscular Disorders: No Hx Family Neurologic Disorders: No Hx Family HEENT Disorders: Yes (trach placed) Hx Family Autoimmune Disorders: No Hx Family Reproductive Disorders: No Hx Family Psychosocial Disorders: No Hx Family Medical Disorders: No Internal Medicine - H&P: Meds Divalproex Sodium [Depakote] 250 mg PO HS 07/27/16 [History] Loratadine [Claritin] 10 mg PO DAILY 07/27/16 [History] Quetiapine Fumarate [Seroquel] 150 mg PO HS 07/27/16 [History] clonazePAM [Klonopin] 0.5 mg PO BID 07/27/16 [History] hydroCHLOROthiazide [Hydrochlorothiazide] 25 mg PO DAILY 07/27/16 [History] Ranitidine HCl [Zantac] 300 mg PO DAILY 08/15/16 [History] DULoxetine [Cymbalta] 90 mg PO DAILY 10/02/16 [History] Aspirin 81 mg PO DAILY #30 tab.chew 12/02/16 [Rx] Pravastatin Sodium [Pravachol] 20 mg PO DAILY #30 tablet 12/02/16 [Rx] Nitroglycerin [Nitrostat] 0.4 mg SL Q5-6MIN PRN #20 tab.subl 03/18/17 [Rx] Ergocalciferol (VITAMIN D2) [Vitamin D2] 50,000 unit PO QMONTH 05/20/17 [History ] Esomeprazole Magnesium [Nexium] 40 mg PO DAILY 05/20/17 [History] Allergies metoclopramide [From Reglan] Adverse Reaction (Verified 05/20/17 21:47) Anxiety prochlorperazine [From Compazine] Adverse Reaction (Verified 05/20/17 21:47) Anxiety All Systems PM: A 10-system review of systems was performed and is negative for pertinent findings except as documented above in the HPI. - Constitutional Constitutional: no chills, no fever(s), no night sweats - EENT Eyes: no change in vision, no discharge, no pain, no photophobia Ears: no ear discharge, no ear pain, no tinnitus Nose, mouth and throat: no dysphagia, no nasal discharge, no neck pain, no sore throat - Cardiovascular Cardiovascular ROS IM: chest pain, no diaphoresis, no dyspnea, no lightheadedness, no palpitations, no syncope - Respiratory Respiratory: no cough, no dyspnea, no wheezing, no excessive phlegm production - Gastrointestinal Gastrointestinal: no abdominal pain, no diarrhea, no hematemesis, no hematochezia, no melena, no nausea, no vomiting - Genitourinary Genitourinary: no change in urinary stream, no dysuria, no flank pain, no hematuria - Musculoskeletal Musculoskeletal ROS IM: no numbness, no tingling - Integumentary Integumentary IM: no rash, no unusual bruising - Neurological Neurological ROS: no confusion, no convulsions, no focal weakness, no numbness, no tingling, no tremor(s) - Hematologic/Lymphatic Hematologic/Lymphatic: no easy bruising - Constitutional Vitals: Temp Pulse Resp BP Pulse Ox 97.7 F 93 20 138/81 97 05/20/17 22:52 05/20/17 22:52 05/20/17 22:52 05/20/17 22:52 05/20/17 22:52 General appearance: Present: cooperative, mild distress, A&O X 3, obese, answers questions appropriately - Eye Eye exam: Present: EOMI, PERRL, conjuntiva pink, sclera anicteric - Neck Neck exam general surgery: Present: supple, trachea midline. Absent: lymphadenopathy - Respiratory Respiratory exam: Present: CTAB. Absent: accessory muscle use, rales, rhonchi, wheezes - Cardiovascular Cardiovascular exam: Present: RRR, +S1, +S2. Absent: diastolic murmur, gallop, rubs, systolic murmur - GI/Abdominal GI/Abdominal exam: Present: normal bowel sounds, soft, no peritoneal signs. Absent: distended, tenderness - Extremities Exam Extremities exam: Present: warm, radial pulses palpable and symetrical. Absent : calf tenderness, cyanotic, pedal edema - Neurological Exam Neurological exam: Present: CN II-XII intact, oriented X3, no focal deficits, strengths equal and symetr throughout. Absent: facial droop, speech deficit - Skin Skin exam: Present: dry, intact Internal Med - H&P Results - Labs CBC & Chem 7: 05/20/17 21:34 05/20/17 21:34
[2017-05-21 02:38] LABS: Hemoglobin A1C 5.6 %
[2017-05-21] MEDS: hydroCHLOROthiazide 25 MG TABLET PO SCH (07:40)
[2017-05-21] MEDS: Loratadine 10 MG TABLET PO SCH (07:41)
[2017-05-21] MEDS: clonazePAM 0.5 MG TABLET PO PRN ×2 (07:49→20:56)
[2017-05-21] MEDS: Aspirin 81 MG TAB.CHEW PO SCH (08:35)
--- NOTE | 2017-05-21 10:51 | Cardiology Consult Note ---
Date of Encounter: 05/21/17 Time of Encounter: 10:52 Assessment and Plan (1) Chest pain Current Visit: Yes Status: Acute Recurrent chest pain, second hospitalization with trip to ED as well. Reports chest pain has been intermittent over the past few months, but has been worsening. Is is described as pressure, not associated with exertion with radiation to left arm. She reports associated dyspnea and nausea. The first nitro helped to ease it, no effect with nitro since then. Dilaudid helped. Troponin negative x 2. Reports increased amount of stress with trying to take care of her brother and babysit grandchildren. Negative stress test 11/2016. Echo 11/2016 EF preserved with normal wall motion. Reviewed previous chest CT and CXR with no findings that would explain chest pain. No EKG changes. Risk factors for CAD include HTN, HLD and tobacco abuse. Given recurrent chest pain and recent negative stress test, LHC was discussed as an option to further evaluate. R/B/A discussed and pt wishes to proceed. LHC today. Qualifiers: Chest pain type: precordial pain Qualified Code(s): R07.2 - Precordial pain (2) Tobacco abuse Current Visit: Yes Status: Chronic Smoking cessation counseling given. (3) Essential hypertension Current Visit: Yes Status: Chronic Well controlled on current meds. Discussion w patient/family: The assessment and plan as outlined above was discussed with the patient and/or family members who expressed understanding and agreement. All questions were answered. Thank you for involving us in the care of your patient. Please call with any questions. I will discuss all the above with Dr. Hook and make changes as necessary. History of Present Illness Consult date: 05/21/17 Requesting physician: Mary Fry Consult reason: Chest pain Chief complaint: Chest pain History of present illness: Ms. Quiles is a 46 year old female with history of hyperlipidemia, HTN, GERD, chronic tobacco abuse presented to the ER with complaints of chest pain. Patient was hospitalized in November of this year with similar complaints and at that time she had a nuclear stress test which was negative. She had another episode of chest pain in February when she was seen in ER and discharged on nitroglycerin. She was advised to follow up with cardiology and has an appointment on May 28. However, she has been having more frequent episodes of chest pain that feels like a pressure on her chest radiating to her back and left arm that has been progressively worsening in frequency and severity. No relation to activity. No nausea or vomiting. No palpitations. She does feel like she is unable to catch her breath when the pain gets worse. She was given nitroglycerin in the ER with some improvement in pain but no relief. She reports Dilaudid helped the pain. Troponins negative x 2. Currently has chest pressure 4/10. Prior CV testing: Echo 12/02/16: LVEF 60%, no significant valvular dysfunction. Nuclear stress test 12/02/16: Perfusion imaging negative for ischemia or infarct, gated EF >70%. Past Med Surg Social Fam HX - Past Medical History Medical history: asthma, GERD, hyperlipidemia, hypertension, migraine Psychiatric history: anxiety, PTSD - Past Surgical History Surgical History: , CLARE/BSO - Social History Smoking Status: Current every day smoker Packs per day: 1 Smokeless Tobacco Status: No Alcohol use: occasionally Drug use: none - Family History Mother Living Status: Still Living Father Name: Ezekiel Feliciano Living Status: Age at : 82 Cause of : CA, FTT Hx Family Cardiac Disorders: Yes (Tachycardia, pacer, defib, ablasion) Hx Family Respiratory Disorders: Yes (COPD) Hx Family Cancer: Yes (bladder ca, metastasis) Hx Family GI Disorders: Yes (GERD) Hx Family Genitourinary Disorders: Yes (Bladder ca, urethral stent) Hx Family Endocrine Disorder: No Hx Family Musculoskeletal Disorders: No Hx Family Neuromuscular Disorders: No Hx Family Neurologic Disorders: No Hx Family HEENT Disorders: Yes (trach placed) Hx Family Autoimmune Disorders: No Hx Family Reproductive Disorders: No Hx Family Psychosocial Disorders: No Hx Family Medical Disorders: No Medications and Allergies Divalproex Sodium [Depakote] 250 mg PO HS 07/27/16 [History] Loratadine [Claritin] 10 mg PO DAILY 07/27/16 [History] Quetiapine Fumarate [Seroquel] 150 mg PO HS 07/27/16 [History] clonazePAM [Klonopin] 0.5 mg PO BID 07/27/16 [History] hydroCHLOROthiazide [Hydrochlorothiazide] 25 mg PO DAILY 07/27/16 [History] Ranitidine HCl [Zantac] 300 mg PO DAILY 08/15/16 [History] DULoxetine [Cymbalta] 90 mg PO DAILY 10/02/16 [History] Aspirin 81 mg PO DAILY #30 tab.chew 12/02/16 [Rx] Pravastatin Sodium [Pravachol] 20 mg PO DAILY #30 tablet 12/02/16 [Rx] Nitroglycerin [Nitrostat] 0.4 mg SL Q5-6MIN PRN #20 tab.subl 03/18/17 [Rx] Ergocalciferol (VITAMIN D2) [Vitamin D2] 50,000 unit PO QMONTH 05/20/17 [History ] Esomeprazole Magnesium [Nexium] 40 mg PO DAILY 05/20/17 [History] Allergies metoclopramide [From Reglan] Adverse Reaction (Verified 05/20/17 21:47) Anxiety prochlorperazine [From Compazine] Adverse Reaction (Verified 05/20/17 21:47) Anxiety All Systems Review: A 10-system review of systems was performed and is negative for pertinent findings except as documented above in the HPI. - Cardiovascular Cardiovascular: as per HPI, chest pain at rest, chest pain with exertion, dyspnea at rest, dyspnea on exertion, radiating jaw, neck or arm pain - Respiratory Respiratory: dyspnea Physical Examination Vital Signs, Last 4 Hours Temp Pulse Resp BP Pulse Ox 05/21/17 07:09 97.7 F 78 16 119/79 97 Vital Signs Temp Pulse Resp BP Pulse Ox 05/21/17 07:09 97.7 F 78 16 119/79 97 05/21/17 03:12 97.7 F 79 16 102/66 93 05/20/17 22:52 97.7 F 93 20 138/81 97 05/20/17 22:40 0 F L 0 0/0 05/20/17 21:56 89 18 128/84 98 05/20/17 21:08 95 05/20/17 20:59 98.3 F 90 20 133/80 97 Intake and Output 05/20/17 05/21/17 05/21/17 23:59 07:59 15:59 Other: Weight 92.487 kg 92.261 kg Patient Weight 05/21/17 23:59 Weight 92.261 kg General: Conversant, No Apparent Distress HEENT: Atraumatic, Normocephaly, Mucus Membranes Moist Neck: No JVD, Normal carotid pulses Cardiac: Reg Rate and Rhythm, Normal S1 and S2, No Murmur Lungs: Normal Breath Sounds, No Wheeze, Rales, Rhonchi Neuro: Alert and responsive, No focal deficits noted Abdomen: Soft, Non-Tender Skin: No rashes noted on visualized skin Musculoskeletal: No Chest Wall Tenderness Extremities: No Clubbing, No Cyanosis, No Edema, Normal Pulses Results 05/20/17 21:34 05/20/17 21:34 Lab Results 05/21/17 05/21/17 01:55 08:55 Troponin I 0.00 0.00 Short CBC 05/20/17 Range/Units 21:34 WBC 8.3 (4.3-11.1) K/mcL Hgb 14.9 (11.5-15.4) g/dL Hct 44.9 (35.3-44.9) % Plt Count 290 (140-400) K/mcL Neutrophils # 3.5 (1.6-8.9) K/mcL BMP 05/20/17 Range/Units 21:34 Sodium 142 (136-145) mEq/L Potassium 3.7 (3.5-4.5) mEq/L Chloride 105 (98-109) mEq/L Carbon Dioxide 29 (19-29) mEq/L BUN 10 (7-20) mg/dL Creatinine 0.80 (0.57-1.11) mg/dL Glucose 102 H (70-99) mg/dL Calcium 9.4 (8.6-10.8) mg/dL Cardiac Enzymes 05/21/17 05/21/17 05/20/17 Range/Units 08:55 01:55 21:34 Troponin I 0.00 0.00 0.00 (0-0.03) ng/mL Impressions Chest X-Ray 05/20/17 21:02 IMPRESSION: No significant findings in the chest. D/ / Gael Guerrero MD / Gael Guerrero MD Interpreting Provider: Gael Guerrero MD Active Medications Acetaminophen (Tylenol) 650 mg PO Q6HR PRN PRN Reason: Mild Pain (1-3) Stop: 11/20/17 00:32 Aspirin (Aspirin) 81 mg PO DAILY TIANNA Stop: 11/20/17 09:01 Last Admin: 05/21/17 08:35 Dose: Not Given Clonazepam (Klonopin) 0.5 mg PO BID PRN PRN Reason: Anxiety Stop: 11/20/17 00:58 Last Admin: 05/21/17 07:49 Dose: 0.5 mg Divalproex Sodium (Depakote Er (24 Hr)) 250 mg PO HS [facility] Stop: 11/20/17 21:01 Duloxetine HCl (Cymbalta) 90 mg PO DAILY [facility] Stop: 11/20/17 09:01 Last Admin: 05/21/17 07:40 Dose: 90 mg Hydrochlorothiazide (Hydrochlorothiazide) 25 mg PO DAILY [facility] PRN Reason: Protocol Stop: 11/20/17 09:01 Last Admin: 05/21/17 07:40 Dose: 25 mg Loratadine (Claritin) 10 mg PO DAILY [facility] PRN Reason: Protocol Stop: 11/20/17 09:01 Last Admin: 05/21/17 07:41 Dose: 10 mg Morphine Sulfate (Morphine Sulfate) 2 mg IVP Q4HR PRN PRN Reason: Severe Pain (7-10) Stop: 11/20/17 00:32 Last Admin: 05/21/17 05:47 Dose: 2 mg Naloxone HCl (Narcan) 0.4 mg IVP Q2MIN PRN PRN Reason: Opioid Reversal Stop: 11/20/17 00:22 Nitroglycerin (Nitroglycerin) 0.4 mg SL Q5MIN PRN PRN Reason: Chest Pain Stop: 11/19/17 21:19 Last Admin: 05/20/17 21:53 Dose: 0.4 mg Omeprazole (Prilosec) 20 mg PO DAILY [facility] Stop: 11/20/17 09:01 Last Admin: 05/21/17 07:40 Dose: 20 mg Quetiapine Fumarate (Seroquel) 150 mg PO HS [facility] PRN Reason: Protocol Stop: 11/20/17 21:01 Simvastatin (Zocor) 10 mg PO DAILY [facility] Stop: 11/20/17 09:01 Last Admin: 05/21/17 07:41 Dose: 10 mg - Imaging and Cardiology Stress Test: report reviewed Echo: report reviewed - EKG Interpretation EKG results cardiology: personally reviewed (SR), other (12 hr tele AVG HR 80, SR, no significant pauses or arrhythmias.) Consult Discharge Plan - Plan Referrals: NO,PCP [Primary Care Provider] -
[2017-05-21] MEDS: Acetaminophen 325 MG TABLET PO PRN ×2 (12:10→20:56)
--- NOTE | 2017-05-21 13:43 | Pre-Sedation Evaluation ---
Pre-sedation evaluation - Pre-sedation checklist Date of procedure: 05/21/17 Procedure: Left Heart Cath Recent Vitals: Last Vital Signs Temp 97.8 F 05/21/17 11:10 Pulse 85 05/21/17 11:10 Resp 16 05/21/17 11:10 BP 113/76 05/21/17 11:10 Pulse Ox 95 05/21/17 11:10 H&P (including ROS) documented in medical record: Yes Previous reaction to sedatives/anesthetics: No Dietary Status: NPO after Midnight Airway Assessment: Patient can open mouth completely, TMJ function normal, Micrognathia (under-bite, receding chin) absent, Neck with adequate range of motion Dentition: full dentition Possible difficult airway: No ASA Classification *see protocol: CLASS II-Mild systemic disease Plan of Care: Pt appropriate candidate for procedure/moderate/conscious sedation , Risks/benefits of procedure/sedation discussed w/ patient/family
[2017-05-21] MEDS ORDERED: 0.9 % Sodium Chloride 2,000 ML ONE (13:57)
[2017-05-21] MEDS ORDERED: *HR* FentaNYL (PF) 100 MCG/2 ML VIAL ONE (13:57)
[2017-05-21] MEDS ORDERED: *HR* Midazolam HCl 2 MG/2 ML VIAL ONE (13:57)
[2017-05-21] MEDS ORDERED: Heparin 1,000 UNITS/500 mL NS 500 ML ONE (13:58)
[2017-05-21] MEDS ORDERED: *HR* Heparin 10,000 UNIT/10 ML VIAL ONE (13:58)
[2017-05-21] MEDS ORDERED: Nitroglycerin 1,000 MCG/10 ML VIAL IV ONE (13:58)
--- NOTE | 2017-05-21 14:56 | Event Note ---
Date of Encounter: 05/21/17 Time of Encounter: 14:53 - Cardiology Event Note Minimal CAD on LHC. Recommend work-up for non-cardiac chest pain. Cardiology signing off. Reconsult PRN.
--- NOTE | 2017-05-21 15:06 | Invasive Diagnostic Lab Proc ---
Name: Amada Quiles Date of Study: 05/21/2017 Date: 1970 Ht: 64.0in Medical Record#: [id number] Age: 46 Wt: 202.38lb Gender: Female BSA: 1.97 Order #: [id number] BMI: 34.72 Physicians Procedure Physician: Marleni Crowell MD, FACC Referring MD: Referring MD: Staff Name Position Time In Claire Messina RT (R) Monitor 02:11 PM AshliJennifer correia RT (R) Scrub 02:11 PM Di Perez RN Photographic Equipment Technician 02:11 PM Tim Cramer RN Photographic Equipment Technician 02:11 PM Indications Indication Unstable Angina Procedures Performed Procedure L HRT ARTERY/VENTRICLE ANGIO Pre-Procedure Checklist Informed consent is complete signed and on chart. H&P is on chart. ID band is on and ID verified with patient. Patient NPO for procedure The procedure was described for the patient and questions were answered. ECG is on chart. Plan of Care Patient will tolerate the procedure without complications. Adequate level of comfort will be maintained. Hemodynamics will remain stable Patient will recover from procedure without complications. Respiratory function will be maintained. Cardiac rhythm will remain stable. Patient temperature will be maintained. Patient and/or family have verbalized understanding of the procedure. Patient Education Chief Complaint/Reason for Test: Cardiac Cath Developmental Category: Adult (18-64 years) Developmentally Appropriate for Age: Yes Learning Barriers: None Education Needs: Procedure Education Method: Verbal Information Taught: Cardiac Cath Educational Evaluation: Able to repeat information Intravenous Access Time IV Size Location DC'd Fluid/Drip Rate Units RN 02:09 PM 20g 1 10/31" Patent On Arrival Rt Hand 0.9NaCl 25 ml/hr Tim Cramer RN Allergies morphine prochlorperazine metoclopramide Vital Signs Time BP (mmHg) HR (bpm) O2 Sat. RR (bpm) LOC 02:12 PM / % 5 = Fully awake and oriented or at pre-proc level 02:12 PM / % 4 = Oriented but drowsy 02:27 PM / % 4 = Oriented but drowsy 02:21 PM 125 / 82 77 99 % 17 02:26 PM 118 / 75 80 97 % 19 02:31 PM 121 / 79 81 94 % 22 02:36 PM 122 / 73 84 95 % 18 02:41 PM 119 / 87 85 96 % 55 02:46 PM 115 / 62 82 95 % 20 02:51 PM 121 / 79 83 95 % 20 Procedural Medications Time Medication Dose Units Method Given By 02:22 PM Oxygen 2 L/min nasal cannula Di Perez RN 02:24 PM Versed 2 mg Intravenous Tim Cramer RN 02:25 PM Fentanyl 50 mcg Intravenous Tim Cramer RN 02:30 PM Benadryl 25 mg Intravenous Tim Cramer RN 02:32 PM Lidocaine 2% 20 ml Subcutaneous Marleni Crowell MD, [facility] ASA Classification: CLASS II- Mild systemic disease (i.e. well-controlled diabetes, hypertension, asthma, cigarette smoking) Lane Score Preprocedure Postprocedure Activity 2- Moves 4 extremities sustained head lift Activity 2- Moves 4 extremities sustained head lift Circulation 2- SBP +/= 20 points of pre-anesthetic level Circulation 2- SBP +/= 20 points of pre-anesthetic level Consciousness 2- Awake and alert oriented x 3 Consciousness 2- Awake and alert oriented x 3 O2 Saturation 2- Able to maintain O2 satruation of 92% on room air O2 Saturation 2- Able to maintain O2 satruation of 92% on room air Respiratory 2- Able to deep breathe and cough well Respiratory 2- Able to deep breathe and cough well Total Score 10 Total Score 10 Contrast Agent: Isovue Diagnostic Contrast: 53 ml Total Contrast: 53 ml Fluoro Dose: 114 mGy Procedure Log Time Note Enter By 02:10 PM Pt arrived to sanitation laborer 2 at 14:10 twilson 02:11 PM CathStat 02:11 PM Claire Messina RT (R) Position: Monitor Time in: 14: twilson 02:11 PM Jennifer Cornelius RT (R) Position: Scrub Time in: 14:11 twilson 02:11 PM Di Perez RN Position: Photographic Equipment Technician Time in: 14:11 twilson 02:11 PM Tim Cramer RN Position: Photographic Equipment Technician Time in: 14:11 twilson 02:11 PM Patient charges- Angio tray pack, Navilyst 3mm J, Pulse Oximetry and ACIST tubing and transducer twilson 02:11 PM Case Delayed no twilson 02:11 PM ASA Class CLASS II- Mild systemic disease (i.e. well-controlled diabetes, hypertension, asthma, cigarette smoking) twilson 02:12 PM Time: 14:12 Patient comfortable and pain free: Yes twilson : PM Time: 14:12LOC: 5 = Fully awake and oriented or at pre-proc level twilson : PM Vitals capture started with the following parameters, Patient=Adult, Interval=5 min, Initial [place]=201 mmHg, Deflation Rate=5 mmHg, Cuff placed on Left Arm 02: PM Physician arrived 14:20 twilson : PM Meet and greet completed twilson : PM Sign in performed according to hospital policy. twilson : PM Procedure start 14: twilson : PM HR=77 bpm, KCUP=935/82 mmhg, SpO2=99.0 %, Resp=17 B/min : PM Hair removed from procedure site in procedure lab using clippers. Bilateral groin prepped with Chloraprep by Claire Messina), safety strap applied then patient was draped. Skin intact. twilson PM Time: 14:22 Oxygen on at 2 L/min per nasal cannula by iD Perez RN twilson : PM Time: 14:24 Versed 2 mg Intravenous Given by Tim Cramer RN twilson 02: PM Time: 14:25 Fentanyl 50 mcg Intravenous Given by Tim Cramer RN twilson 02: PM HR=80 bpm, GCDF=124/75 mmhg, SpO2=97.0 %, Resp=19 B/min 02: PM Time: 14:12 Patient comfortable and pain free: Yes twilson PM Time: 14:12LOC: 4 = Oriented but drowsy twilson :29 PM Time out performed according to hospital policy twilson : PM Time: 14:30 Benadryl 25 mg Intravenous Given by Tim Cramer RN twilson 02:31 PM HR=81 bpm, FTAY=801/79 mmhg, SpO2=94.0 %, Resp=22 B/min 02:32 PM Time: 14:32 20 ml Lidocaine 2% to right groin Subcutaneous Given by Marleni Crowell MD, [facility] twilson 02:35 PM Access obtained by percutaneous puncture. 5Fr 10cm Terumo [place] sheath placed in right Femoral artery. [id number] twilson 02:36 PM HR=84 bpm, GRTJ=703/73 mmhg, SpO2=95.0 %, Resp=18 B/min 02:36 PM Pressure channel 1 zeroed. 02:36 PM 5Fr FL 4 catheter inserted over the wire DN twilson 02:36 PM Recorded ECG: HR=87 Condition=Condition 1 02:36 PM Wire removed twilson 02:37 PM Recorded Pressure: Ao, HR=82, Condition=Condition 1 (Aorta) Ao 113/83/96 02:37 PM LCA angiography performed in multiple views. twilson 02:38 PM Wire reinserted twilson 02:38 PM Catheter removed twilson 02:38 PM 5Fr FR 4 catheter inserted over the wire DNC twilson 02:39 PM Wire removed, intact. twilson 02:39 PM RCA angiography performed in multiple views. twilson 02:40 PM Wire reinserted and catheter removed. twilson 02:41 PM Pressure channel 1 zero failed. 02:41 PM Pressure channel 1 zero failed. 02:41 PM Pressure channel 1 zeroed. 02:41 PM Recorded Pressure: LV, HR=88, Condition=Condition 1 (Left Ventricle) LV 99/43/45 02:41 PM 5Fr Pigtail catheter inserted over the wire [facility] twilson 02:41 PM Catheter selectively placed in left ventricle twilson 02:41 PM Recorded Pressure: LV, HR=84, Condition=Condition 1 (Left Ventricle) LV 112/26/31 02:41 PM HR=85 bpm, EHWZ=473/87 mmhg, SpO2=96.0 %, Resp=55 B/min 02:41 PM Wire removed, intact. twilson 02:41 PM Recorded Pressure: LV, Ao, HR=88, Condition=Condition 1 (Left Ventricle) LV 141/62/91, (Aorta) Ao 122/91/107 02:42 PM Time: 14:27 Patient comfortable and pain free: Yes twilson 02:42 PM Time: 14:27LOC: 4 = Oriented but drowsy twilson 02:42 PM Bolus angiogram of left Ventricle complete: 8 ml/sec for a total of 24 mls twilson 02:43 PM Wire reinserted twilson 02:43 PM Catheter removed twilson 02:43 PM Coronary Dominance: right twilson 02:44 PM Procedure completed at 14:44 twilson 02:45 PM Sign out completed: Radiation Dose 114.46 mGy Fluoro Time: 1.0 Isovue 370 - 200ml contrast 53 ml given by Marleni Crowell MD, [facility]. Complications: NoneCardiac Rehab Consult needed: NoConfirmed administered medications: Yes twilson 02:45 PM Isovue 370 - 200ml,1 Bottle(s) used. twilson 02:45 PM Arterial sheath pulled, Mynx closure device used and was Successful S/N. twilson 02:45 PM Post ECG NSR twilson 02:46 PM HR=82 bpm, TUYY=732/62 mmhg, SpO2=95.0 %, Resp=20 B/min 02:46 PM Information taught Cardiac Cath and Mynx twilson 02:48 PM Post Blood Pressure 115/62 twilson 02:48 PM 14:48 Post Pulses Bilateral DP 2+ twilson 02:48 PM 14:48 Post Pulses Bilateral PT 1+ twilson 02:48 PM 14:48 Post Pulses Bilateral radial 2+ twilson 02:49 PM Education needs Procedure, Plan of Care, and Responsibilities of Patient in Care twilson 02:49 PM Learning barriers :None twilson 02:49 PM Education Methods Verbal twilson 02:49 PM Education evaluation Able to repeat information twilson 02:49 PM Site status No bleeding/hematoma - Rt Groin as reported by Jennifer Cornelius RT (R) at 14:49 twilson 02:49 PM Opsite applied twilson 02:51 PM HR=83 bpm, SWNF=671/79 mmhg, SpO2=95.0 %, Resp=20 B/min 02:52 PM Family placed in consult room. twilson 02:53 PM Lesion found in Proximal LAD. Pre Stenosis: 20 Pre CHELSIE Flow: twilson 02:53 PM Lesion found in Mid Circumflex. Pre Stenosis: 20 Pre CHELSIE Flow: twilson 02:53 PM Proximal Left Anterior Descending Coronary Artery with 20% stenosis. If graft is supplying this territory, 0 % stenosis. twilson 02:53 PM Circumflex, Obtuse Marginal, Left Posterior Descending, and Left Posterolateral Coronary Arteries with 20 % stenosis. If graft is supplying this area, 0 % stenosis twilson 02:57 PM Report given to RN Pt taken to 3B Room #37. 14:57 twilson 02:57 PM Patient out of room: 14:57 twilson Complications Complication None Hemodynamics Pressures Site Systolic/A Wave Diastolic/V Wave Mean AO 113 83 96 LV 99 43 45 LV 112 26 31 LV 141 62 91 AO 122 91 107 Post Procedure Information Blood Pressure: 115/62 mmHg Rhythm: NSR Post procedural instructions were given Closure Device Time Device Success/Fail 05/21/2017 2:52:00 PM Mechanical Compression Successful Site Checks Time Location Status Staff Sheath In? Note 02:49 PM Rt Groin No bleeding/hematoma Jennifer Cornelius RT (R) Pulses Time Site Pre-Procedure Post-Procedure Note 05/21/2017 2:09:00 PM Bilateral DP 2+ 05/21/2017 2:09:00 PM Rt Radial 2+ 05/21/2017 2:09:00 PM Lt Radial 2+ 05/21/2017 2:09:00 PM Bilateral PT 1+ 2:48:00 PM Bilateral DP 2+ 2:48:00 PM Bilateral PT 1+ 2:48:00 PM Bilateral radial 2+ Updated by Claire Messina, RT (R) on 05/21/2017 2:57:53 PM electronically signed on 05/21/2017 3:00:57 PM with status of Final
[2017-05-21] MEDS ORDERED: Ketorolac 30 MG/ML VIAL IVP PRN (15:32)
--- NOTE | 2017-05-21 15:53 | Event Note ---
Date of Encounter: 05/21/17 Time of Encounter: 12:00 Patient seen and examined in concert with cardiology. Patient sitting upright in bed and alert and oriented 3. Patient complaining of chest pressure but denies overt chest pain. She is also complaining of a migraine that starts on the left side of her posterior neck and radiates to her forehead. She states she gets migraines. Patient had a negative stress test in December 2016. Chest x- ray negative. Per cardiology, plan is for left heart catheter today. We will continue to address her headache. No vision changes or balance issues. Suspect headache is consistent with tension headache. ITS Impressions Chest X-Ray 05/20/17 21:02 IMPRESSION: No significant findings in the chest. D/ / Gael Guerrero MD / Gael Guerrero MD Interpreting Provider: Gael Guerrero MD
--- NOTE | 2017-05-21 17:01 | Invasive Diagnostic Lab ---
Name: Amada Quiles Date of Study: 05/21/2017 Date: 1970 Ht: 162.6 cm /64.0 in Medical Record#: [id number] Age: 46 Wt: 91.8 kg / 202.38 lb Account/Order#: [id number] Gender: Female BSA: 1.97 Order #: [id number] Fluoro Dose: 114 mGy BMI: 34.72 Procedure Physician: Marleni Crowell MD, FACC Referring MD: Referring MD: Procedures Performed: LEFT HEART CATH Indications: Unstable Angina Impressions: Minimal nonobstructive coronary artery disease. The left ventricle is normal and has normal contractility EF 60% Recommendations: Optimal medical therapy of patient's disease. Aggressive risk factor modification. History/Risk Factors: cp gerd Hypertension Dyslipidemia Current/Recent Smoker Family History of CAD Procedure Access obtained in the right Femoral artery by percutaneous puncture Complications: None Contrast: Isovue 53ml Closure Device: Mechanical Compression Hemodynamics: Pressures Site Systolic/ A Wave Diastolic/ V Wave End Diastolic/ Mean HR AO 113 83 96 82 LV 99 43 45 88 LV 112 26 31 84 LV 141 62 91 91 AO 122 91 107 85 LV Ventriculography Ejection Method: LV Gram Ejection Fraction: 60% Wall Motion: HERRING Anterobasal Normal Anterolateral Normal Apical: Normal Inferoapical Normal Inferobasal Normal Coronary Dominance: right Lesion Findings/Interventions * Left Main Coronary Artery The LMCA is angiographically free of disease. * Left Anterior Descending There is a 20% stenosis in the Proximal LAD. * Circumflex There is a 20% stenosis in the Mid Circumflex. * Right Coronary Artery The RCA is angiographically free of disease. The Right PDA is angiographically free of disease. Updated by RT Nicko (R) on 05/21/2017 2:57:27 PM Marleni Crowell MD, FACC electronically signed on 05/21/2017 4:55:20 PM with status of Final
--- NOTE | 2017-05-21 17:51 | Electrocardiograph Report ---
[place] [address] Test Date: 2017-05-20 Pat Name: Amada Quiles Department: 105 Room: 3B37 Gender: F [employer] Room Cashier: KARYNA : 1970 Requested By: Garret Gan Order Number: [id number] Reading MD: Rae Staley Measurements Intervals [place] Rate: 91 P: 3 NM: 117 QRS: 23 QRSD: 94 T: 31 QT: 363 QTc: 412 Interpretive Statements SINUS RHYTHM AND SINUS ARRHYTHMIA WITH SHORT NM INTERVAL Electronically Signed On 05-21-2017 17:49:06 EDT by Rae Staley
[2017-05-21] MEDS ORDERED: Divalproex (24 HR) 250 MG TABLET PO SCH (21:00)
[2017-05-22 07:56] VITALS: BP 119/82
[2017-05-22] MEDS: hydroCHLOROthiazide 25 MG TABLET PO SCH (07:56)
[2017-05-22] MEDS: Loratadine 10 MG TABLET PO SCH (07:57)
[2017-05-22] MEDS: Aspirin 81 MG TAB.CHEW PO SCH (07:57)
[2017-05-22] MEDS: clonazePAM 0.5 MG TABLET PO PRN (08:10)
--- NOTE | 2017-05-22 09:37 | Discharge Summary ---
Date of Encounter: 05/22/17 Time of Encounter: 08:45 - Discharge Diagnosis (1) Chest pain Priority: Primary Status: Ruled-out Comments: [facility] negative. Per cardiology, investigate noncardiac causes. Qualifiers: Chest pain type: precordial pain Qualified Code(s): R07.2 - Precordial pain (2) Non-cardiac chest pain Priority: Primary Status: Suspected (3) Chronic headaches Priority: Secondary Status: Chronic Comments: patient had a headache while admitted that started in her right, posterior neck , and extended up to her forehead. consistent with tension headaches. Patient stating she gets headaches frequently at home and uses Excedrin Migraines. Headache abated prior to discharge. No vision or gait abnormalities. Qualifiers: Headache type: tension-type Intractability: not intractable Qualified Code(s): G44.229 - Chronic tension-type headache, not intractable (4) GERD (gastroesophageal reflux disease) Priority: Secondary Status: Chronic Comments: chronic, stable. continue home zantac and nexium. Qualifiers: Esophagitis presence: without esophagitis Qualified Code(s): K21.9 - Gastro -esophageal reflux disease without esophagitis (5) DVT prophylaxis Priority: Primary Status: Acute Comments: Observation patient. Up ad kelly. (6) Hyperlipidemia Priority: Secondary Status: Chronic Comments: Lipid panel borderline abnormal, recommend continue statin. Low-cholesterol diet. Qualifiers: Hyperlipidemia type: mixed hyperlipidemia Qualified Code(s): E78.2 - Mixed hyperlipidemia (7) Essential hypertension Priority: Secondary Status: Chronic Comments: Controlled, follow-up outpatient (8) Tobacco abuse Priority: Secondary Status: Chronic Comments: 1 PPD. Patient stating she is motivated to quit and states she will try to quit on her own. - Discharge Medications Home Medications: Divalproex Sodium [Depakote] 250 mg PO HS 07/27/16 [History] Loratadine [Claritin] 10 mg PO DAILY 07/27/16 [History] Quetiapine Fumarate [Seroquel] 150 mg PO HS 07/27/16 [History] clonazePAM [Klonopin] 0.5 mg PO BID 07/27/16 [History] hydroCHLOROthiazide [Hydrochlorothiazide] 25 mg PO DAILY 07/27/16 [History] Ranitidine HCl [Zantac] 300 mg PO DAILY 08/15/16 [History] DULoxetine [Cymbalta] 90 mg PO DAILY 10/02/16 [History] Aspirin 81 mg PO DAILY #30 tab.chew 12/02/16 [Rx] Pravastatin Sodium [Pravachol] 20 mg PO DAILY #30 tablet 12/02/16 [Rx] Nitroglycerin [Nitrostat] 0.4 mg SL Q5-6MIN PRN #20 tab.subl 03/18/17 [Rx] Ergocalciferol (VITAMIN D2) [Vitamin D2] 50,000 unit PO QMONTH 05/20/17 [History ] Esomeprazole Magnesium [Nexium] 40 mg PO DAILY 05/20/17 [History] Allergies/Adverse Reactions: Allergies metoclopramide [From Reglan] Adverse Reaction (Verified 05/20/17 21:47) Anxiety prochlorperazine [From Compazine] Adverse Reaction (Verified 05/20/17 21:47) Anxiety Procedures/tests Complete & Pending: Procedures Performed prior 72 hours Category Date Time Status CL Cardiac Catheterization [CL] Routine Consulting Sales Executive 05/21/17 11:55 Completed Date of admission: 05/20/17 22:31 Primary care physician: PCP NO Consults: 05/21/17 00:36 Consult to Cardiology [CONS] Routine Comment: Consulting Provider: Cardiology Katja Reason for Consult: Chest pain negative stress test earlier this year but worsening and progressive chest pain Call Completed: No Discharging clinician: Yvonne Booker Anticipated date of discharge: 05/22/17 - Patient Status Disposition: Home, Self-Care Condition: Good Functional capacity at discharge: independent ambulation Overall status at discharge: patient is back to baseline - Discharge Instructions Follow Up With: Gilbert Lind MD [Partnered Physician] - Marleni Esparza [Other] Additional Instructions: Follow-up with primary care provider within one to 2 weeks, follow-up with cardiology as scheduled - Diet and Activity Activity: increase activity as tolerated Diet: low fat, low cholesterol, low salt diet Hospital course: Ms. Quiles is a 46 year old female with past medical history of asthma, GERD, hypertension, migraines, PTSD, anxiety, 1 pack per day smoker. Patient presented to the emergency department chief complaint of chest pain. Patient was hospitalized in November of this year with similar complaints and at that time, she had a negative stress test. Patient stating she had another episode of chest pain in February which she was seen in the emergency department and was discharged on nitroglycerin. She was advised to follow up outpatient with cardiology and has a pending appointment for May 28 however she states that her episodes have become more frequent and she felt like she had chest pressure that radiated to her back and her left arm and had aggressively worsened in frequency and severity prompting her presentation to the emergency department. The patient denies relation of chest pain to activity, she denies nausea or vomiting or palpitations. She does feel like she is unable to catch her breath when her pain gets worse. Her pain improved in the emergency department with nitroglycerin but was not relieved. Chest x-ray negative. Patient was admitted to the hospitalist service for further evaluation and management. Patient continue of chest pressure while admitted. She also had chronic migraine. Cardiology was brought on board who proceeded with a left heart catheter. Left heart catheter revealed minimal CAD and cardiology recommended investigation of noncardiac causes of her ongoing chest pain. Patient continued to endorse episodes of chest pressure but stated she felt as if it could be her anxiety. Migraine was abated with Toradol. Regarding risk factor modification, patient is on an aspirin. She is also on a statin. Blood pressure controlled. Smoking cessation discussed and the patient stated that she wanted to try stopping smoking on her own. She was discharged home in stable condition with close outpatient follow-up recommended. ITS Impressions Chest X-Ray 05/20/17 21:02 IMPRESSION: No significant findings in the chest. D/ / Gael Guerrero MD / Gael Guerrero MD Interpreting Provider: Gael Guerrero MD - Time Spent with Patient Total time spent providing and/or coordinating discharge services: - Constitutional Vitals: Temp Pulse Resp BP Pulse Ox 97.8 F 76 16 119/82 90 05/22/17 07:52 05/22/17 07:52 05/22/17 07:52 05/22/17 07:52 05/22/17 07:52 General appearance: Present: cooperative, A&O X 3, pleasant, no acute distress, obese, answers questions appropriately - Head Head exam: Present: atraumatic, normocephalic - Eye Eye exam: Present: PERRL, conjuntiva pink, sclera anicteric Pupils: Present: PERRL - Neck Neck exam general surgery: Present: supple, trachea midline. Absent: lymphadenopathy - Respiratory Respiratory exam: Present: decreased breath sounds. Absent: accessory muscle use, rales, respiratory distress, rhonchi, wheezes - Cardiovascular Cardiovascular exam: Present: RRR, +S1, +S2. Absent: diastolic murmur, gallop, rubs, systolic murmur - GI/Abdominal GI/Abdominal exam: Present: normal bowel sounds, soft, no peritoneal signs. Absent: distended, tenderness - Extremities Exam Extremities exam: Present: warm, radial pulses palpable and symetrical. Absent : calf tenderness, cyanotic, pedal edema - Neurological Exam Neurological exam: Present: alert, CN II-XII intact, normal gait, oriented X3, no focal deficits, strengths equal and symetr throughout. Absent: pronater drift, facial droop, speech deficit - Skin Skin exam: Present: dry, intact, normal color, warm
== END 2017-05-22 11:40 | disposition home or self-care (01) ==
LOC: EMEROO 20:58 → 3BNU 20:58 → SUATTDRO 22:31 → 3BNU 22:47
PROVIDERS: ADMIT Internal Medicine; ATTEND Nurse Practitioner Family

== ENCOUNTER 2018-09-12 11:08 | Observation (INO) ==
[2018-09-12] MEDS ORDERED: Aspirin 81 MG TAB.CHEW PO ONE (11:16)
--- NOTE | 2018-09-12 11:20 | Emergency Department Note ---
Disposition Clinical Impression: Chest pain Qualifiers: Chest pain type: unspecified Qualified Code(s): R07.9 - Chest pain, unspecified Disposition: Admitted As Inpatient Condition: Good Time of Disposition: 12:46 General Adult HPI - General Stated complaint: CP Time Seen by Provider: 09/12/18 11:10 Source: patient Mode of arrival: ambulatory Limitations: no limitations Nursing Notes Reviewed: Yes Vital Signs Reviewed: Yes - History of Present Illness HPI Narrative: Patient is a 48 year old female since emergency Department chest pain. Patient states that she was shopping and she developed left-sided chest pain that radiated into her left shoulder and neck. Patient states that she has had a previous history of EKG changes and a cardiac catheterization partially 3 years ago which she states was normal. Patient states that she has been short of efrain th, nauseated and diaphoretic with her chest pain. Patient denies any recent long car rides, hormone therapy, recent surgeries or history of cancer. Patient denies any previous blood clots. Patient states that she has never had a heart attack in the past. Patient states that if she gets up and ambulates she becomes more short of breath. - Related Data Home Medications Medication Instructions Recorded Confirmed Divalproex Sodium [Depakote] 250 mg PO HS 07/27/16 09/12/18 Loratadine [Claritin] 10 mg PO DAILY 07/27/16 09/12/18 Quetiapine Fumarate [Seroquel] 100 mg PO HS PRN 07/27/16 09/12/18 clonazePAM [Klonopin] 0.5 mg PO BID 07/27/16 09/12/18 hydroCHLOROthiazide 25 mg PO DAILY 07/27/16 09/12/18 [Hydrochlorothiazide] Ranitidine HCl [Zantac] 300 mg PO DAILY 08/15/16 09/12/18 DULoxetine [Cymbalta] 30 mg PO DAILY 10/02/16 09/12/18 Duloxetine HCl [Cymbalta] 60 mg PO QAM 09/12/18 09/12/18 Esomeprazole Magnesium [Nexium] 20 mg PO DAILY 09/12/18 09/12/18 Ondansetron ODT [Zofran ODT] 4 mg PO Q8H PRN 09/12/18 09/12/18 Previous Rx's Medication Instructions Recorded Nitroglycerin [Nitrostat] 0.4 mg SL Q5-6MIN PRN #20 tab.subl 03/18/17 Allergies Allergy/AdvReac Type Severity Reaction Status Date / Time metoclopramide [From Reglan] AdvReac Anxiety Verified 09/12/18 13:30 prochlorperazine AdvReac Anxiety Verified 09/12/18 13:30 [From Compazine] All systems ED: reviewed and negative except as stated. Cardiovascular: Reports: chest pain Respiratory: Denies: dyspnea Gastrointestinal: Reports: nausea. Denies: abdominal pain Past Medical History - Past Medical History Attestation: Yes The following information was validated with the patient. Source: patient Medical history: Reports: asthma, GERD, hyperlipidemia, hypertension, migraine Surgical history: Reports: appendectomy, , CLARE/BSO Psychiatric history: Reports: anxiety, PTSD BRINE PURIFIER history: Reports: no BRINE PURIFIER history - Social History Smoking Status: Current every day smoker Smokeless Tobacco Status: No Alcohol use: Reports: occasionally Drug use: Reports: none Physical Exam - General Limitations: no limitations General appearance: alert, in no apparent distress - Head Head exam: atraumatic, normocephalic - Eye Eye exam: Present: normal appearance, EOMI - Neck Neck exam: Present: normal inspection, full ROM, trachea midline - Respiratory Respiratory exam: Present: normal lung sounds bilaterally. Absent: respiratory distress, wheezes - Cardiovascular Cardiovascular exam: Present: normal rhythm, tachycardia, normal heart sounds, +S1, +S2 - Abdominal Exam Abdominal exam: Present: soft, Non-Tender, normal bowel sounds - Neurological Exam Neurological exam: Present: alert, oriented X3 - Psychiatric Psychiatric exam: Present: normal affect, normal mood - Skin Skin exam: Present: warm, dry, intact Course Vital Signs Temperature 98.9 F 09/12/18 11:21 Pulse Rate 88 09/12/18 11:21 Respiratory Rate 20 09/12/18 11:21 Blood Pressure 145/98 09/12/18 11:21 O2 Sat by Pulse Oximetry 96 09/12/18 11:21 Temperature 98.9 F 09/12/18 11:21 Pulse Rate 88 09/12/18 11:21 Respiratory Rate 20 09/12/18 11:21 Blood Pressure 145/98 09/12/18 11:21 O2 Sat by Pulse Oximetry 96 09/12/18 11:21 Oxygen Delivery Oxygen Delivery Room Air Medical Decision Making - MDM Narrative Medical decision making narrative: Due the patient's into the emergency Department with chest pain and a history of abnormal EKG per patient there is concern for possible cardiac involvement we will obtain basic laboratory testing including CBC, BMP, troponin chest x-ray and EKG. patient was given aspirin and nitroglycerin here in the emergency department. Patient's troponin was negative. Remainder of her laboratory testing is relatively unremarkable. The patient does have a heart score of 4 d ue to the patient having a place suspicious story. She has greater than 3 risk factors. And her age is 48. This and the patient having a heart score of 4 and having acute onset of chest pain feel the patient needs to be admitted to the hospital for further evaluation and management chest pain rule out. I called and spoke the admitting hospitalist and she has accepted the patient to their service. Patient will be admitted to the hospital this time for further evaluation and management of her chest pain. Patient is in agreement with this plan. - Medical Records Medical records reviewed: Yes I reviewed the patient's medical records. - Lab Data Lab results reviewed: Yes I reviewed the patient's lab results. Result diagrams: 09/12/18 11:26 09/12/18 11:26 Lab Results 09/12/18 09/12/18 09/12/18 Range/Units 11:16 11:26 11:26 WBC 8.1 (4.3-11.1) K/mcL RBC 5.16 H (3.82-4.97) M/mcL Hgb 15.9 H (11.5-15.4) g/dL Hct 46.9 H (35.3-44.9) % MCV 90.9 (83.0-100.0) fL MCH 30.8 (28.0-33.3) pg MCHC 33.9 (31.6-35.5) g/dL RDW 12.0 (11.5-14.5) % Plt Count 298 (140-400) K/mcL MPV 10.5 (9.4-12.4) fL Immature Gran % 0.1 (0-4) % Seg Neutrophils % 54.0 % Lymphocytes % 37.1 % Monocytes % 7.0 % Eosinophils % 1.2 % Basophils % 0.6 % Neutrophils # 4.3 (1.6-8.9) K/mcL Lymphocytes # 3.0 (0.6-4.6) K/mcL Monocytes # 0.6 (0.0-1.3) K/mcL Eosinophils # 0.1 (0.0-0.6) K/mcL Basophils # 0.1 (0.0-0.2) K/mcL PT 12.2 H (9.4-12.1) Seconds INR 1.1 Sodium 139 (136-145) mEq/L Potassium 4.0 (3.5-5.1) mEq/L Chloride 104 (98-107) mEq/L Carbon Dioxide 26 (23-29) mEq/L BUN 13 (6-20) mg/dL Creatinine 0.78 (0.60-1.20) mg/dL Est GFR ( Amer) > 60 (> 60) Est GFR (Non-Af Amer) > 60 (> 60) BUN/Creatinine Ratio 17 (6-26) Glucose 109 H (70-105) mg/dL Calculated Osmolality 289 (280-300) Calcium 9.3 (8.6-10.3) mg/dL Troponin I < 0.03 (< 0.04) ng/mL - Radiology Data Radiology results reviewed: Yes I reviewed the patient's radiology results. Chest X-Ray 09/12/18 11:16 IMPRESSION: No radiographic evidence of acute cardiopulmonary disease. D/ / Jluis Davis / Jluis Davis Interpreting Provider: Jluis Davis - EKG Data EKG #1 EKG attestation: Yes I reviewed and interpreted this EKG. EKG results narrative: EKG shows sinus rhythm rate 97, UT interval 107, QRS duration 93. QTc of 447. No evidence of STEMI on EKG. This is compared to previous EKG on 05/05/18 showed a sinus rhythm at a rate of 95 bpm. There are no significant changes noted between these 2 EKGs.
[2018-09-12] MEDS: Nitroglycerin 0.4 MG TAB.SUBL SL ONE ×3 (11:33→11:43)
[2018-09-12 11:35] LABS: Basophils # 0.1 K/mcL (0.0-0.2); Basophils % 0.6 %; Eosinophils # 0.1 K/mcL (0.0-0.6); Eosinophils % 1.2 %; Hematocrit 46.9 % (35.3-44.9); Hemoglobin 15.9 g/dL (11.5-15.4); Immature Granulocytes % 0.1 % (0-4); Lymphocytes % 37.1 %; Mean Corpuscular HGB Conc 33.9 g/dL (31.6-35.5); Mean Corpuscular Hemoglobin 30.8 pg (28.0-33.3); Mean Corpuscular Volume 90.9 fL (83.0-100.0); Mean Platelet Volume 10.5 fL (9.4-12.4); Monocytes # 0.6 K/mcL (0.0-1.3); Neutrophils # 4.3 K/mcL (1.6-8.9); Platelet Count 298 K/mcL (140-400); Red Blood Count 5.16 M/mcL (3.82-4.97)
[2018-09-12 11:41] LABS: INR 1.1; Prothrombin Time 12.2 Seconds (9.4-12.1)
[2018-09-12 11:57] LABS: Troponin I < 0.03 ng/mL (< 0.04)
[2018-09-12 12:12] LABS: BUN/Creatinine Ratio 17 (6-26); Blood Urea Nitrogen 13 mg/dL (6-20); Calcium 9.3 mg/dL (8.6-10.3); Carbon Dioxide 26 mEq/L (23-29); Chloride 104 mEq/L (98-107); Glucose 109 mg/dL (70-105); Osmolality,Calculated 289 (280-300); Sodium 139 mEq/L (136-145); eGFR For Non-African Americans > 60 (> 60)
--- NOTE | 2018-09-12 12:15 | Emergency Department Note ---
Disposition Clinical Impression: Chest pain Disposition: Admitted As Inpatient Condition: Good Referrals: Erlinda Stearns, CLIMATOLOGIST [Primary Care Provider] - Forms: ED Satisfaction Letter General Adult HPI - General Chief complaint: ED Chest Pain Stated complaint: CP Time Seen by Provider: 09/12/18 11:10 Source: patient Mode of arrival: ambulatory Limitations: no limitations - History of Present Illness Pain Scale: 8 - Related Data Home Medications Medication Instructions Recorded Confirmed Divalproex Sodium [Depakote] 250 mg PO HS 07/27/16 05/20/17 Loratadine [Claritin] 10 mg PO DAILY 07/27/16 05/20/17 Quetiapine Fumarate [Seroquel] 150 mg PO HS 07/27/16 05/20/17 clonazePAM [Klonopin] 0.5 mg PO BID 07/27/16 05/20/17 hydroCHLOROthiazide 25 mg PO DAILY 07/27/16 05/20/17 [Hydrochlorothiazide] Ranitidine HCl [Zantac] 300 mg PO DAILY 08/15/16 05/20/17 DULoxetine [Cymbalta] 90 mg PO DAILY 10/02/16 05/20/17 Ergocalciferol (VITAMIN D2) 50,000 unit PO QMONTH 05/20/17 05/20/17 [Vitamin D2] Esomeprazole Magnesium [Nexium] 40 mg PO DAILY 05/20/17 05/20/17 Previous Rx's Medication Instructions Recorded Aspirin 81 mg PO DAILY #30 tab.chew 12/02/16 Pravastatin Sodium [Pravachol] 20 mg PO DAILY #30 tablet 12/02/16 Nitroglycerin [Nitrostat] 0.4 mg SL Q5-6MIN PRN #20 tab.subl 03/18/17 HYDROcodone/Acet 5/325 mg [[place] 1 - 2 tab PO Q6H PRN #10 tab 07/25/17 5-325 mg] Ondansetron ODT [Zofran ODT] 4 mg SL Q6HR PRN #10 tab.rapdis 05/05/18 Sucralfate [Carafate] 1 gm PO QIDAC #120 tablet 05/05/18 Allergies Allergy/AdvReac Type Severity Reaction Status Date / Time metoclopramide [From Reglan] AdvReac Anxiety Verified 07/25/17 16:37 prochlorperazine AdvReac Anxiety Verified 07/25/17 16:37 [From Compazine] Cardiovascular: Reports: chest pain Respiratory: Denies: dyspnea Gastrointestinal: Reports: nausea. Denies: abdominal pain Past Medical History - Past Medical History Medical history: Reports: asthma, GERD, hyperlipidemia, hypertension, migraine Surgical history: Reports: appendectomy, , CLARE/BSO Psychiatric history: Reports: anxiety, PTSD GAME MODERATOR history: Reports: no GAME MODERATOR history - Social History Smoking Status: Current every day smoker Smokeless Tobacco Status: No Alcohol use: Reports: occasionally Drug use: Reports: none Physical Exam - General Limitations: no limitations General appearance: alert, in no apparent distress Course Vital Signs Temperature 98.9 F 09/12/18 11:21 Pulse Rate 88 09/12/18 11:21 Respiratory Rate 20 09/12/18 11:21 Blood Pressure 145/98 09/12/18 11:21 O2 Sat by Pulse Oximetry 96 09/12/18 11:21 Temperature 98.9 F 09/12/18 11:21 Pulse Rate 88 09/12/18 11:21 Respiratory Rate 20 09/12/18 11:21 Blood Pressure 145/98 09/12/18 11:21 O2 Sat by Pulse Oximetry 96 09/12/18 11:21 Oxygen Delivery Oxygen Delivery Room Air Medical Decision Making - Lab Data Result diagrams: 09/12/18 11:26 09/12/18 11:26 Lab Results 09/12/18 09/12/18 09/12/18 Range/Units 11:16 11:26 11:26 WBC 8.1 (4.3-11.1) K/mcL RBC 5.16 H (3.82-4.97) M/mcL Hgb 15.9 H (11.5-15.4) g/dL Hct 46.9 H (35.3-44.9) % MCV 90.9 (83.0-100.0) fL MCH 30.8 (28.0-33.3) pg MCHC 33.9 (31.6-35.5) g/dL RDW 12.0 (11.5-14.5) % Plt Count 298 (140-400) K/mcL MPV 10.5 (9.4-12.4) fL Immature Gran % 0.1 (0-4) % Seg Neutrophils % 54.0 % Lymphocytes % 37.1 % Monocytes % 7.0 % Eosinophils % 1.2 % Basophils % 0.6 % Neutrophils # 4.3 (1.6-8.9) K/mcL Lymphocytes # 3.0 (0.6-4.6) K/mcL Monocytes # 0.6 (0.0-1.3) K/mcL Eosinophils # 0.1 (0.0-0.6) K/mcL Basophils # 0.1 (0.0-0.2) K/mcL PT 12.2 H (9.4-12.1) Seconds INR 1.1 Sodium 139 (136-145) mEq/L Potassium 4.0 (3.5-5.1) mEq/L Chloride 104 (98-107) mEq/L Carbon Dioxide 26 (23-29) mEq/L BUN 13 (6-20) mg/dL Creatinine 0.78 (0.60-1.20) mg/dL Est GFR ( Amer) > 60 (> 60) Est GFR (Non-Af Amer) > 60 (> 60) BUN/Creatinine Ratio 17 (6-26) Glucose 109 H (70-105) mg/dL Calculated Osmolality 289 (280-300) Calcium 9.3 (8.6-10.3) mg/dL Troponin I < 0.03 (< 0.04) ng/mL Attestation Statement - Attestation Attestation: I examined this patient and my medical decision-making was reviewed with the Resident Physician. I agree with the documented findings, disposition and treatment plan as described except to the extent set forth below. Patient presents to the ED with a chief complaint of chest pain. 7 onset when she was shopping today. Left-sided into her neck. States she felt weak and nauseated the time. It is improved. Patient has a history of chest pain or cardiac workup was unremarkable. She is newly placed on lisinopril for hyperte nsion. On examination she is in no acute distress. Heart regular lungs clear plan. Cardiac workup. Heart score 4. Likely observation. Workup unremarkable. We will admit.
[2018-09-12] MEDS ORDERED: Ondansetron 4 MG/2 ML VIAL IVP ONE (12:50)
[2018-09-12] MEDS ORDERED: Nitroglycerin 0.4 MG TAB.SUBL SL PRN (14:41)
[2018-09-12] MEDS ORDERED: Ondansetron 4 MG/2 ML VIAL IVP PRN (14:41)
[2018-09-12] MEDS ORDERED: Naloxone 0.4 MG/ML INJ IVP PRN (14:43)
--- NOTE | 2018-09-12 14:55 | Internal Med History&Physical ---
Date of Encounter: 09/12/18 Time of Encounter: 14:55 Internal Medicine - H&P: HPI Admitted From: Home Plans for Post Hospital Care: Home History of present illness: Ms. Quiles is a 48 year old female with a PMH of asthma, GERD, HLD, HTN, anxiety, PTSD and migraine. She presents today after developing left-sided chest pain with radiation to left shoulder, left neck and back while shopping. She reports that the chest pain was sharp and constant in nature and describes associated symptoms of diaphoresis, dizziness, nausea, and shortness of breath. She denies any aggravating or alleviating factors. She does report that initially the pain was 8/10 but that it improved with one sublingual nitroglycerin and is now 3/10 and intermittent. She denies any ill contacts, URI signs or symptoms, fevers, chills, abdominal pain, nausea, vomiting, diarrhea, unilateral extremity swelling or pain. Denies any prior history of CT. She was noted to have a heart catheter 05/13 showing a minimal nonobstructive CAD and an echocardiogram 12/14 which was grossly normal. Her EKG was without ST-T wave concerning for ischemia when compared to prior. Her initial troponin was negative. She is being admitted for observation. We will obtain serial troponins and place her on telemetry further monitoring. If chest pain resolves and troponins are normal consider discharge in the morning. However, chest pain persists or should troponins worsen consider further workup. 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 Psychiatric history: anxiety, PTSD - Past Surgical History Surgical History: appendectomy, , CLARE/BSO Additional surgical history: ankle sx x3, 2x shoulder, back sx - Social History Smoking Status: Current every day smoker Smokeless Tobacco Status: No Alcohol use: occasionally Drug use: none - Family History Mother Living Status: Still Living Father Living Status: Hx Family Cardiac Disorders: Yes (Tachycardia, pacer, defib, ablasion) Hx Family Respiratory Disorders: Yes (COPD) Hx Family Cancer: Yes (bladder ca, metastasis) Hx Family GI Disorders: Yes (GERD) Hx Family Endocrine Disorder: No Hx Family Neuromuscular Disorders: No Hx Family Neurologic Disorders: No Hx Family HEENT Disorders: Yes (trach placed) Hx Family Autoimmune Disorders: No Internal Medicine - H&P: Meds Divalproex Sodium [Depakote] 250 mg PO HS 07/27/16 [History] Loratadine [Claritin] 10 mg PO DAILY 07/27/16 [History] Quetiapine Fumarate [Seroquel] 100 mg PO HS PRN 07/27/16 [History] clonazePAM [Klonopin] 0.5 mg PO BID 07/27/16 [History] hydroCHLOROthiazide [Hydrochlorothiazide] 25 mg PO DAILY 07/27/16 [History] Ranitidine HCl [Zantac] 300 mg PO DAILY 08/15/16 [History] DULoxetine [Cymbalta] 30 mg PO DAILY 10/02/16 [History] Nitroglycerin [Nitrostat] 0.4 mg SL Q5-6MIN PRN #20 tab.subl 03/18/17 [Rx] Duloxetine HCl [Cymbalta] 60 mg PO QAM 09/12/18 [History] Esomeprazole Magnesium [Nexium] 20 mg PO DAILY 09/12/18 [History] Ondansetron ODT [Zofran ODT] 4 mg PO Q8H PRN 09/12/18 [History] Allergy/AdvReac Type Severity Reaction Status Date / Time metoclopramide [From Reglan] AdvReac Anxiety Verified 09/12/18 13:30 prochlorperazine AdvReac Anxiety Verified 09/12/18 13:30 [From Compazine] All Systems PM: A 10-system review of systems was performed and is negative for pertinent findings except as documented above in the HPI. Review of systems: REVIEW OF SYSTEMS GENERAL: Negative for any nausea, vomiting, fevers, chills, or weight loss. NEUROLOGIC: Negative for any blurry vision, blind spots, double vision, facial asymmetry, dysphagia, dysarthria, hemiparesis, hemisensory deficits, vertigo, ataxia. HEENT: Negative for any head trauma, neck trauma, neck stiffness, photophobia, phonophobia, sinusitis, rhinitis. CARDIAC: Negative for any paroxysmal nocturnal dyspnea, peripheral edema. Positive for chest pain, dyspnea, tachycardia, palpitations, dizziness. PULMONARY: Negative for any shortness of breath, wheezing, COPD, or TB exposure. GASTROINTESTINAL: Negative for any abdominal pain, nausea, vomiting, bright red blood per rectum, melena. GENITOURINARY: Negative for any dysuria, hematuria, incontinence. INTEGUMENTARY: Negative for any rashes, cuts, insect bites. RHEUMATOLOGIC: Negative for any joint pains, photosensitive rashes, history of vasculitis or kidney problems. HEMATOLOGIC: Negative for any abnormal bruising, frequent infections or bleeding. - Constitutional Vitals: Temp Pulse Resp BP Pulse Ox 97.6 F 79 18 129/69 95 09/12/18 14:44 09/12/18 14:44 09/12/18 14:44 09/12/18 14:44 09/12/18 14:44 General appearance: Present: A&O X 3 Exam: PHYSICAL EXAMINATION: GENERAL: Pleasant appearing 48-year-old female in no apparent distress, alert and oriented 3 HEENT: Head is normocephalic and atraumatic. Extraocular muscles are intact. Pupils are equal, round, and reactive to light and accommodation. NECK: Supple. No carotid bruits. No lymphadenopathy or thyromegaly. LUNGS: Clear to auscultation B/L AP and L. HEART: Regular rate and rhythm, S1, S2 without murmurs, rubs or gallops. ABDOMEN: Soft, nontender, and nondistended. Positive bowel sounds. No hepatosplenomegaly was noted. EXTREMITIES: Without any cyanosis, clubbing, rash, lesions or edema. NEUROLOGIC: Cranial nerves II through XII are grossly intact. SKIN: No ulceration or induration present. Internal Med - H&P Results - Labs CBC & Chem 7: 09/12/18 11:26 09/12/18 11:26 Labs: Short CBC 09/12/18 Range/Units 11:26 WBC 8.1 (4.3-11.1) K/mcL Hgb 15.9 H (11.5-15.4) g/dL Hct 46.9 H (35.3-44.9) % Plt Count 298 (140-400) K/mcL Neutrophils # 4.3 (1.6-8.9) K/mcL BMP 09/12/18 11:26 Sodium 139 Potassium 4.0 Chloride 104 Carbon Dioxide 26 BUN 13 Creatinine 0.78 Glucose 109 H Calcium 9.3 Cardiac Enzymes 09/12/18 Range/Units 11:26 Troponin I < 0.03 (< 0.04) ng/mL - EKG Data -: EKG Interpreted by Myself EKG shows normal: sinus rhythm Rate: normal - EKG Data Prior EKG available for review: yes Interpretation IM: normal EKG - Impressions ITS Impressions Chest X-Ray 09/12/18 11:16 IMPRESSION: No radiographic evidence of acute cardiopulmonary disease. D/ / Jluis Davis / Jluis Davis Interpreting Provider: Jluis Davis - Assessment and plan (1) Chest pain Current Visit: Yes Status: Acute Assessment and plan: Chest pain of unclear etiology; occurred while shopping, no aggravating or alleviating factors Associated symptoms include dyspnea, dizziness, fatigue, shortness of breath, nausea Improved with one sublingual nitroglycerin; was initially constant but now intermittent after SL nitroglycerin Patient had a left heart catheter on 05/13 revealing minimal nonobstructive CAD No prior history of CAD Risk factors include obesity, former smoker, HTN, sedentary lifestyle Heart score 4 EKG in the ED without any ST-T wave changes concerning for ischemia Initial troponin negative Admit for observation for further evaluation and monitoring Serial troponins; if troponins remain normal and chest pain results consider discharge in the morning However, if chest pain continues and her worsens or troponin trends up she will need further evaluation refrain from stress test or echo at this time with recent LHC with normal coronaries PLAN: - cardiac enzymes x 2 q 6 hr - ASA - Metoprolol 12.5 mg PO BID, hold for HR lower than 55 bpm - Fasting lipids in a.m. - SL nitroglycerin PRN - continue anti-HTN meds - Lovenox Qualifiers: Chest pain type: unspecified Qualified Code(s): R07.9 - Chest pain, unspecified (2) Essential hypertension Current Visit: No Status: Chronic Assessment and plan: Per history, BP stable, continue anti-HTN meds (3) GERD (gastroesophageal reflux disease) Current Visit: No Status: Chronic Assessment and plan: Resume GERD medications Qualifiers: Esophagitis presence: without esophagitis Qualified Code(s): K21.9 - Gastro-esophageal reflux disease without esophagitis (4) Hyperlipidemia Current Visit: No Status: Chronic Assessment and plan: Per history, LDL mildly elevated otherwise normal. Repeat lipid panel in the morning Qualifiers: Hyperlipidemia type: mixed hyperlipidemia Qualified Code(s): E78.2 - Mixed hyperlipidemia (5) Tobacco abuse Current Visit: No Status: Resolved Assessment and plan: Reports that she has been tobacco free 1 month (6) Anxiety Current Visit: Yes Status: Acute Assessment and plan: Continue home meds, appears mildly anxious at this time (7) PTSD (post-traumatic stress disorder) Current Visit: Yes Status: Acute Assessment and plan: Continue home meds - Time Spent With Patient Total time spent is greater than 50% in coordination of care (as documented) at patient's floor/unit and/or counseling patient: less than 15 minutes
[2018-09-12] MEDS ORDERED: *HR* Morphine 2 MG/ML SYRINGE IVP ONE (15:06)
--- NOTE | 2018-09-12 16:46 | Electrocardiograph Report ---
[facility] Date: 2018-09-12 Pat Name: Amada Quiles Department: EXAM6 Room: 3B13 Gender: F Electrical Systems Drafter: : 1970 Requested By: Douglas Wray Order Number: [id number] Reading MD: Hany Cortes Measurements Intervals [place] Rate: 89 P: 21 NV: 107 QRS: 45 QRSD: 93 T: 25 QT: 367 QTc: 447 Interpretive Statements Sinus rhythm Short NV interval Electronically Signed On 09-12-2018 16:44:32 EST by Hany Cortes
[2018-09-12] MEDS: clonazePAM 0.5 MG TABLET PO SCH (19:38)
[2018-09-12] MEDS ORDERED: Divalproex (12 HR) 250 MG TABLET PO SCH (21:00)
[2018-09-13 04:45] LABS: Chol/HDL Ratio 5.8 (0-4.9)
[2018-09-13] MEDS ORDERED: *HR* Enoxaparin 40 MG/0.4 ML SYRINGE SQ SCH (07:00)
--- NOTE | 2018-09-13 07:55 | Internal Med Progress Note ---
Hospitalist Progress Note - Encounter Date of Encounter: 09/13/18 Time of Encounter: 07:54 - Subjective Interval History: Seen and examined at bedside today. No acute changes overnight. Denying any chest pain at this time. Remains hemodynamically stable and in no distress. - Exam Vitals: Temp Pulse Resp BP Pulse Ox 98.0 F 84 16 101/69 92 09/13/18 06:36 09/13/18 06:36 09/13/18 06:36 09/13/18 06:36 09/13/18 06:36 Exam: PHYSICAL EXAMINATION: GENERAL: Pleasant appearing 48-year-old female in no apparent distress, alert and oriented 3 HEENT: Head is normocephalic and atraumatic. Extraocular muscles are intact. Pupils are equal, round, and reactive to light and accommodation. NECK: Supple. No carotid bruits. No lymphadenopathy or thyromegaly. LUNGS: Clear to auscultation B/L AP and L. HEART: RRR, S1, S2 without murmurs, rubs or gallops. ABDOMEN: Soft, nontender, and nondistended. Positive bowel sounds. No hepatosplenomegaly was noted. EXTREMITIES: Without any cyanosis, clubbing, rash, lesions or edema. NEUROLOGIC: Cranial nerves II through XII are grossly intact. SKIN: No ulceration or induration present. - Assessment and Plan (1) Chest pain Current Visit: Yes Status: Acute (2) Essential hypertension Current Visit: No Status: Chronic (3) GERD (gastroesophageal reflux disease) Current Visit: No Status: Chronic (4) Hyperlipidemia Current Visit: No Status: Chronic (5) Tobacco abuse Current Visit: No Status: Resolved (6) Anxiety Current Visit: Yes Status: Acute (7) PTSD (post-traumatic stress disorder) Current Visit: Yes Status: Acute - Time Spent with Patient Total time spent is greater than 50% in coordination of care (as documented) at patient's floor/unit and/or counseling patient: Internal Medicine: Result - Labs CBC & Chem 7: 09/12/18 11:26 09/12/18 11:26 Labs: Short CBC 09/12/18 Range/Units 11: WBC 8.1 (4.3-11.1) K/mcL Hgb 15.9 H (11.5-15.4) g/dL Hct 46.9 H (35.3-44.9) % Plt Count 298 (140-400) K/mcL Neutrophils # 4.3 (1.6-8.9) K/mcL BMP 09/12/18 11:26 Sodium 139 Potassium 4.0 Chloride 104 Carbon Dioxide 26 BUN 13 Creatinine 0.78 Glucose 109 H Calcium 9.3 Cardiac Enzymes 09/12/18 09/12/18 09/12/18 Range/Units 11:26 17:11 23:55 Troponin I < 0.03 < 0.03 < 0.03 (< 0.04) ng/mL - ABG Interpretation ABG results: PT/INR, D-dimer PT 12.2 Seconds (9.4-12.1) H 09/12/18 11:16 - Impressions Impressions Chest X-Ray 09/12/18 11:16 IMPRESSION: No radiographic evidence of acute cardiopulmonary disease. D/ / Jluis Davis / Jluis Davis Interpreting Provider: Jluis Davis Consult Discharge Plan - Plan Referrals: Erlinda Stearns, STATE PATROL OFFICER [Primary Care Provider] - (1) Chest pain Qualifiers: Chest pain type: unspecified Qualified Code(s): R07.9 - Chest pain, unspecified (3) GERD (gastroesophageal reflux disease) Qualifiers: Esophagitis presence: without esophagitis Qualified Code(s): K21.9 - Gastro- esophageal reflux disease without esophagitis (4) Hyperlipidemia Qualifiers: Hyperlipidemia type: mixed hyperlipidemia Qualified Code(s): E78.2 - Mixed hyperlipidemia
[2018-09-13] MEDS: clonazePAM 0.5 MG TABLET PO SCH (08:14)
[2018-09-13] MEDS ORDERED: hydroCHLOROthiazide 25 MG TABLET PO SCH (09:00)
[2018-09-13] MEDS ORDERED: Aspirin 81 MG TAB.CHEW PO SCH (09:00)
[2018-09-13] MEDS ORDERED: Famotidine 20 MG TABLET PO SCH (09:00)
[2018-09-13] MEDS ORDERED: NON-FORMULARY MEDICATION 1 EACH EACH (Duloxetine Hcl [Cymbalta] 60 MG) PO SCH (09:00)
[2018-09-13] MEDS ORDERED: Loratadine 10 MG TABLET PO SCH (09:00)
--- NOTE | 2018-09-13 10:35 | Event Note ---
Date of Encounter: 09/13/18 Time of Encounter: 10:33 - Cardiology Event Note Patient presented with chest pain, not on any anti-anginal medications. Previous history reviewed with [facility] 2017 with minimal CAD. ECG reported without changes from baseline. Troponins negative. Discussed and reviewed with , who recommends addition of anti-anginal medications, consider ranexa and evaluation for non-cardiac causes of chest pain. Cardiology will sign off, re-consult if needed.
[2018-09-13 10:47] VITALS: BP 126/76
--- NOTE | 2018-09-13 12:52 | Discharge Summary ---
- NOTES TO OUTPATIENT PROVIDER Notes to Outpatient Provider: Basic discharge follow-up Date of Encounter: 09/13/18 Time of Encounter: 12:50 - Discharge Diagnosis (1) Chest pain Priority: Primary Status: Acute Qualifiers: Chest pain type: unspecified Qualified Code(s): R07.9 - Chest pain, unspecified (2) Essential hypertension Priority: Secondary Status: Chronic (3) GERD (gastroesophageal reflux disease) Priority: Secondary Status: Chronic Qualifiers: Esophagitis presence: without esophagitis Qualified Code(s): K21.9 - Gastro-esophageal reflux disease without esophagitis (4) Hyperlipidemia Priority: Secondary Status: Chronic Qualifiers: Hyperlipidemia type: mixed hyperlipidemia Qualified Code(s): E78.2 - Mixed hyperlipidemia (5) Tobacco abuse Priority: Secondary Status: Resolved (6) Anxiety Priority: Secondary Status: Acute (7) PTSD (post-traumatic stress disorder) Priority: Secondary Status: Acute Hospital course: Ms. Quiles is a 48 year old female presented with chest pain. EKG without changes from baseline, repeat troponin is negative. [facility] 2017 with minimal CAD. Not on any antianginal medications. Discussed with cardiology who recommends addition of antianginal medication. Does not have insurance and will not be able to afford Ranexa. We will discharge on Imdur. Follow-up with PCP in one week. Chest pain free at time of D/C Discharge discussed with: patient, nurse, senior talent management consultant - Time Spent with Patient Total time spent providing and/or coordinating discharge services: Less than 30 minutes - Discharge Medications Prescriptions: Isosorbide MONOnitrate (24 HR) [Imdur] 30 mg PO DAILY 30 Days #30 tab.er.24h Home Medications: Divalproex Sodium [Depakote] 250 mg PO HS 07/27/16 [History] Loratadine [Claritin] 10 mg PO DAILY 07/27/16 [History] Quetiapine Fumarate [Seroquel] 100 mg PO HS PRN 07/27/16 [History] clonazePAM [Klonopin] 0.5 mg PO BID 07/27/16 [History] hydroCHLOROthiazide [Hydrochlorothiazide] 25 mg PO DAILY 07/27/16 [History] Ranitidine HCl [Zantac] 300 mg PO DAILY 08/15/16 [History] DULoxetine [Cymbalta] 30 mg PO DAILY 12/06/16 [History] Nitroglycerin [Nitrostat] 0.4 mg SL Q5-6MIN PRN #20 tab.subl 03/18/17 [Rx] Duloxetine HCl [Cymbalta] 60 mg PO QAM 09/12/18 [History] Esomeprazole Magnesium [Nexium] 20 mg PO DAILY 09/12/18 [History] Ondansetron ODT [Zofran ODT] 4 mg PO Q8H PRN 09/12/18 [History] Isosorbide MONOnitrate (24 HR) [Imdur] 30 mg PO DAILY 30 Days #30 tab.er.24h 09/13/18 [Rx] Allergies/Adverse Reactions: Allergy/AdvReac Type Severity Reaction Status Date / Time metoclopramide [From Reglan] AdvReac Anxiety Verified 09/12/18 13:30 prochlorperazine AdvReac Anxiety Verified 09/12/18 13:30 [From Compazine] Date of admission: 09/12/18 13:20 Primary care physician: Erlinda Stearns CNP Discharging clinician: Carroll Tim Anticipated date of discharge: 09/13/18 - Constitutional Vitals: Temp Pulse Resp BP Pulse Ox 98.2 F 85 18 126/76 94 09/13/18 10:45 09/13/18 10:45 09/13/18 10:45 09/13/18 10:45 09/13/18 10:45 General appearance: Present: A&O X 3 Exam: see exam - Head Head exam: Present: atraumatic, normocephalic - Eye Eye exam: Present: PERRL, conjuntiva pink, sclera anicteric Pupils: Present: PERRL - Neck Neck exam general surgery: Present: supple, trachea midline. Absent: lymphadenopathy - Respiratory Respiratory exam: Present: CTAB. Absent: accessory muscle use, rales, rhonchi, wheezes - Cardiovascular Cardiovascular exam: Present: RRR, +S1, +S2. Absent: diastolic murmur, gallop, rubs, systolic murmur - GI/Abdominal GI/Abdominal exam: Present: normal bowel sounds, soft, no peritoneal signs. Absent: distended, tenderness - Extremities Exam Extremities exam: Present: warm, radial pulses palpable and symmetrical. Absent: calf tenderness, cyanotic, pedal edema - Neurological Exam Neurological exam: Present: CN II-XII intact, oriented X3, no focal deficits. Absent: pronater drift, facial droop, speech deficit - Skin Skin exam: Present: dry, intact - Patient Status Disposition: Home, Self-Care Condition: Good Functional capacity at discharge: independent ambulation Overall status at discharge: patient is back to baseline - Discharge Instructions Instructions: Chest Pain (DC), Anxiety (DC) Follow Up With: Erlinda Stearns, CONCRETE PUMP OPERATOR [Primary Care Provider] - (Please call [phone] to schedule follow up appointment for 7-10 days from date of discharge. ) - Diet and Activity Activity: increase activity as tolerated, resume usual activities as tolerated Diet: diabetic diet, low fat, low cholesterol, low salt diet
== END 2018-09-13 14:30 | disposition home or self-care (01) ==
LOC: 3BNU 11:08 → EMEROOARM 11:08 → 3BNU 14:22
PROVIDERS: ADMIT Internal Medicine; ATTEND Internal Medicine

== ENCOUNTER 2022-02-09 15:05 | Observation (INO) ==
[2022-02-09 15:46] LABS: Basophils % 0.7 %; Eosinophils # 0.2 K/mcL (0.0-0.6); Eosinophils % 3.8 %; Hematocrit 38.6 % (35.3-44.9); Hemoglobin 12.2 g/dL (11.5-15.4); Immature Granulocytes % 0.2 % (0-4); Lymphocytes # 2.4 K/mcL (0.6-4.6); Lymphocytes % 38.8 %; Mean Corpuscular HGB Conc 31.6 g/dL (31.6-35.5); Mean Corpuscular Hemoglobin 26.6 pg (28.0-33.3); Mean Corpuscular Volume 84.1 fL (83.0-100.0); Mean Platelet Volume 10.7 fL (9.4-12.4); Monocytes # 0.5 K/mcL (0.0-1.3); Platelet Count 349 K/mcL (140-400); Red Blood Count 4.59 M/mcL (3.82-4.97); Red Cell Distribution Width 13.9 % (11.5-14.5); Segmented Neutrophils % 48.5 %; White Blood Count 6.1 K/mcL (4.3-11.1)
[2022-02-09 15:55] LABS: INR 1.1; Prothrombin Time 12.7 Seconds (9.4-12.1)
[2022-02-09 15:59] LABS: Activated Partial Thrombo Time 26.7 Seconds (26.0-36.0)
[2022-02-09 16:05] LABS: Alanine Aminotransferase 25 Units/L (7-52); Albumin 3.9 g/dL (3.5-5.7); Albumin/Globulin Ratio 1.4 (1.1-2.2); Alkaline Phosphatase 51 Units/L (34-104); Aspartate Amino Transferase 20 Units/L (13-39); BUN/Creatinine Ratio 12 (6-26); Bilirubin,Indirect 0.3 mg/dL (0.0-1.0); Bilirubin,Total 0.3 mg/dL (0.3-1.0); Blood Urea Nitrogen 11 mg/dL (6-20); Calcium 8.8 mg/dL (8.6-10.3); Carbon Dioxide 22 mEq/L (23-29); Chloride 103 mEq/L (98-107); Globulin 2.8 g/dL (2.4-3.5); Glucose 142 mg/dL (70-105); Osmolality,Calculated 286 (280-300); Potassium 3.3 mEq/L (3.5-5.1); Sodium 137 mEq/L (136-145); Total Protein 6.7 g/dL (6.4-8.9); eGFR For African Americans > 60 (> 60); eGFR For Non-African Americans > 60 (> 60)
[2022-02-09 16:06] LABS: Troponin I < 0.03 ng/mL (< 0.04)
[2022-02-09] MEDS ORDERED: Ondansetron 4 MG/2 ML VIAL IVP ONE (19:11)
[2022-02-09] MEDS ORDERED: *HR* Heparin 5,000 UNIT/ML VIAL IVP ONE (19:35)
[2022-02-09] MEDS ORDERED: *HR* Heparin 5,000 UNIT/ML VIAL IVP PRN ×2 (19:35)
[2022-02-09] MEDS ORDERED: Melatonin 3 MG TABLET PO PRN (19:40)
[2022-02-09] MEDS ORDERED: Acetaminophen 325 MG TABLET PO PRN (19:40)
[2022-02-09] MEDS ORDERED: *HR* HYDROcodone/Acet 5/325 mg TABLET PO PRN (19:40)
[2022-02-09] MEDS ORDERED: Naloxone 0.4 MG/ML INJ IVP PRN (19:40)
[2022-02-09] MEDS ORDERED: Ondansetron ODT 4 MG TAB.RAPDIS SL PRN (19:40)
[2022-02-09] MEDS ORDERED: Perflutren Lipid Microsphere 1.3 ML in 0.9 % Sodium Chloride 8.7 ML IVP PRN (19:43)
[2022-02-09] MEDS ORDERED: Heparin 25,000UNIT/250ML 1/2NS 25,000 UNIT/250 ML IV.SOLN IVC SCH (19:45)
[2022-02-09] MEDS ORDERED: Nitroglycerin 0.4 MG TAB.SUBL SL PRN (21:15)
[2022-02-09] MEDS: *HR* OxyCODONE Immed Rel 5 MG TABLET PO PRN (22:06)
[2022-02-10 01:15] LABS: Hematocrit 38.8 % (35.3-44.9); Mean Corpuscular HGB Conc 30.9 g/dL (31.6-35.5); Mean Corpuscular Volume 84.2 fL (83.0-100.0); Mean Platelet Volume 10.5 fL (9.4-12.4); Platelet Count 340 K/mcL (140-400); Red Blood Count 4.61 M/mcL (3.82-4.97); Red Cell Distribution Width 14.1 % (11.5-14.5); White Blood Count 8.6 K/mcL (4.3-11.1)
[2022-02-10 01:33] LABS: Estimated Average Glucose 126 mg/dl
[2022-02-10 01:37] LABS: BUN/Creatinine Ratio 15 (6-26); Blood Urea Nitrogen 12 mg/dL (6-20); Calcium 8.9 mg/dL (8.6-10.3); Carbon Dioxide 27 mEq/L (23-29); Chloride 103 mEq/L (98-107); Chol/HDL Ratio 4.4 (0-4.9); Cholesterol 249 mg/dL (< 200); Glucose 104 mg/dL (70-105); HDL Cholesterol 57 mg/dL (40-59); LDL Cholesterol,Calculated 151 mg/dL (< 100); Magnesium 2.2 mg/dL (1.6-2.6); Osmolality,Calculated 288 (280-300); Phosphorous 4.4 mg/dL (2.7-4.5); Potassium 3.6 mEq/L (3.5-5.1); Sodium 139 mEq/L (136-145); Triglycerides 207 mg/dL (< 150); eGFR For African Americans > 60 (> 60); eGFR For Non-African Americans > 60 (> 60)
[2022-02-10 01:50] LABS: Thyroid Stimulating Hormone 3.451 mcIU/mL (0.340-5.600)
[2022-02-10] MEDS: Aspirin 81 MG TAB.CHEW PO SCH (08:24)
[2022-02-10] MEDS: *HR* OxyCODONE Immed Rel 5 MG TABLET PO PRN ×2 (10:08→21:10)
[2022-02-10] MEDS ORDERED: SUMAtriptan 6 MG/0.5 ML SQ ONE (14:07)
[2022-02-10] MEDS ORDERED: clonazePAM 0.5 MG TABLET PO SCH (15:00)
[2022-02-10] MEDS ORDERED: Famotidine 20 MG TABLET PO SCH (21:00)
[2022-02-10] MEDS ORDERED: Divalproex (24 HR) 250 MG TABLET PO SCH (21:00)
[2022-02-11] MEDS ORDERED: lisinopriL 5 MG TABLET PO SCH (09:00)
[2022-02-11] MEDS ORDERED: FLUoxetine 20 MG CAPSULE PO SCH (09:00)
[2022-02-11] MEDS ORDERED: NON-FORMULARY MEDICATION 1 EACH EACH (Duloxetine Hcl [Cymbalta] 60 MG Capsule.Dr) PO SCH (09:00)
[2022-02-11] MEDS ORDERED: hydroCHLOROthiazide 25 MG TABLET PO SCH (09:00)
[2022-02-11] MEDS ORDERED: cloNIDine HCL 0.1 MG TABLET PO SCH (09:00)
[2022-02-11] MEDS: Aspirin 81 MG TAB.CHEW PO SCH (09:02)
[2022-02-11] MEDS ORDERED: clonazePAM 0.5 MG TABLET PO PRN (09:07)
[2022-02-11] MEDS ORDERED: Ibuprofen 400 MG TABLET PO ONE (09:12)
[2022-02-11 10:33] VITALS: BP 105/65; PULSE 67; TEMP 97.7; O2SAT 95
== END 2022-02-11 14:14 | disposition home or self-care (01) ==
LOC: EMEROOARM 15:05 → 3BNU 15:05 → SUATTDRO 19:16 → 3BNU 19:45
PROVIDERS: ADMIT Internal Medicine; ATTEND Registered Nurse

== ENCOUNTER 2022-02-16 17:06 | Observation (INO) ==
[2022-02-16 18:26] LABS: Basophils # 0.1 K/mcL (0.0-0.2); Basophils % 0.6 %; Eosinophils # 0.3 K/mcL (0.0-0.6); Eosinophils % 4.3 %; Hematocrit 38.4 % (35.3-44.9); Hemoglobin 11.8 g/dL (11.5-15.4); Immature Granulocytes % 0.3 % (0-4); Lymphocytes % 38.1 %; Mean Corpuscular HGB Conc 30.7 g/dL (31.6-35.5); Mean Corpuscular Hemoglobin 26.1 pg (28.0-33.3); Mean Platelet Volume 11.1 fL (9.4-12.4); Monocytes # 0.8 K/mcL (0.0-1.3); Monocytes % 10.2 %; Neutrophils # 3.6 K/mcL (1.6-8.9); Platelet Count 322 K/mcL (140-400); Red Blood Count 4.52 M/mcL (3.82-4.97); Red Cell Distribution Width 14.4 % (11.5-14.5); Segmented Neutrophils % 46.5 %; White Blood Count 7.8 K/mcL (4.3-11.1)
[2022-02-16 18:38] LABS: INR 1.1; Prothrombin Time 12.6 Seconds (9.4-12.1)
[2022-02-16 18:40] LABS: Activated Partial Thrombo Time 30.9 Seconds (26.0-36.0)
[2022-02-16] MEDS ORDERED: Ondansetron 4 MG/2 ML VIAL IVP ONE (18:41)
[2022-02-16 18:48] LABS: Alanine Aminotransferase 25 Units/L (7-52); Albumin 4.1 g/dL (3.5-5.7); Albumin/Globulin Ratio 1.4 (1.1-2.2); Alkaline Phosphatase 48 Units/L (34-104); Aspartate Amino Transferase 18 Units/L (13-39); BUN/Creatinine Ratio 14 (6-26); Bilirubin,Indirect 0.3 mg/dL (0.0-1.0); Bilirubin,Total 0.3 mg/dL (0.3-1.0); Blood Urea Nitrogen 12 mg/dL (6-20); Calcium 8.9 mg/dL (8.6-10.3); Carbon Dioxide 26 mEq/L (23-29); Chloride 106 mEq/L (98-107); Glucose 78 mg/dL (70-105); Lipase 31 Units/L (11-82); Osmolality,Calculated 289 (280-300); Sodium 140 mEq/L (136-145); Total Protein 7.1 g/dL (6.4-8.9); Troponin I < 0.03 ng/mL (< 0.04); eGFR For African Americans > 60 (> 60); eGFR For Non-African Americans > 60 (> 60)
[2022-02-16] MEDS ORDERED: Melatonin 3 MG TABLET PO PRN (21:27)
[2022-02-16] MEDS ORDERED: Naloxone 0.4 MG/ML INJ IVP PRN (21:27)
[2022-02-16] MEDS ORDERED: Famotidine 20 MG TABLET PO SCH (23:00)
[2022-02-16] MEDS: clonazePAM 0.5 MG TABLET PO SCH (23:20)
[2022-02-17 05:49] LABS: Hematocrit 33.5 % (35.3-44.9); Hemoglobin 10.4 g/dL (11.5-15.4); Mean Corpuscular Hemoglobin 26.2 pg (28.0-33.3); Mean Corpuscular Volume 84.4 fL (83.0-100.0); Platelet Count 245 K/mcL (140-400); Red Blood Count 3.97 M/mcL (3.82-4.97); Red Cell Distribution Width 14.4 % (11.5-14.5); White Blood Count 5.1 K/mcL (4.3-11.1)
[2022-02-17] MEDS ORDERED: *HR* Heparin 5,000 UNIT/ML VIAL SQ SCH (06:00)
[2022-02-17 06:11] LABS: BUN/Creatinine Ratio 17 (6-26); Blood Urea Nitrogen 14 mg/dL (6-20); Calcium 8.4 mg/dL (8.6-10.3); Carbon Dioxide 27 mEq/L (23-29); Chloride 109 mEq/L (98-107); Glucose 122 mg/dL (70-105); Magnesium 2.1 mg/dL (1.6-2.6); Osmolality,Calculated 296 (280-300); Potassium 3.7 mEq/L (3.5-5.1); Sodium 142 mEq/L (136-145); eGFR For African Americans > 60 (> 60); eGFR For Non-African Americans > 60 (> 60)
[2022-02-17] MEDS ORDERED: FLUoxetine 20 MG CAPSULE PO SCH (09:00)
[2022-02-17] MEDS ORDERED: Aspirin 81 MG TAB.CHEW PO SCH (09:00)
[2022-02-17] MEDS ORDERED: Loratadine 10 MG TABLET PO SCH (09:00)
[2022-02-17] MEDS ORDERED: Regadenoson 0.4 MG/5 ML SYRINGE IVP ONE (09:20)
[2022-02-17] MEDS: clonazePAM 0.5 MG TABLET PO SCH ×2 (09:25→15:33)
[2022-02-17] MEDS ORDERED: Ibuprofen 400 MG TABLET PO PRN (09:28)
[2022-02-17 14:36] VITALS: BP 130/85; PULSE 55; TEMP 97.5; O2SAT 98
[2022-02-17] MEDS ORDERED: Divalproex (12 HR) 250 MG TABLET PO SCH (21:00)
== END 2022-02-17 18:32 | disposition home or self-care (01) ==
LOC: EMEROOARM 17:06 → 3BNU 17:06 → SUATTDRO 21:06 → 3BNU 21:39
PROVIDERS: ADMIT Internal Medicine; ATTEND Nurse Practitioner